=== PATIENT | female | born 1950 | race Caucasian/White ===

== ENCOUNTER 2018-02-06 15:46 | Outpatient (CLI) | payer OTHER, SELFPAY ==
[2018-02-06 16:12] LABS: Abs Immature Grans 0.02 k/cumm (0.0-0.09); Absolute Basophil Count 0.03 k/cumm (0.0-0.2); Absolute Eosinophil Count 0.09 k/cumm (0.0-0.7); Absolute Lymphocyte Count 1.04 k/cumm (1.2-3.4); Absolute Monocyte Count 0.55 k/cumm (0.11-0.7); Absolute Neutrophil Count 7.62 k/cumm (1.2-6.7); Basophils % 0.3; HCT 44.3 % (36.0-46.0); HGB 14.9 g/dL (12.0-15.5); Immature Grans % 0.2; Lymphocytes % 11.1; Mean Corp. HGB Concentration 33.6 g/dL (32.0-36.0); Mean Corpuscular Hemoglobin 32.1 pg (27.0-33.0); Mean Corpuscular Volume 95.5 fL (80-95); Mean Platelet Volume 9.1 fL (8.0-11.0); Monocytes % 5.9; Neutrophils % 81.5; Platelet Count 244 x1000/uL (130-400); RBC 4.64 m/cumm (4.00-5.20); RBC Distribution Width 13.4 % (11.7-14.6); White Blood Cell Count 9.35 k/cumm (4.4-10.8)
[2018-02-06 17:17] LABS: ALT 27 U/L (12-78); AST 21 U/L (15-37); Albumin 3.9 g/dL (3.4-5.0); Alkaline Phosphatase 87 U/L (46-116); Anion Gap 7.5 mmol/L (3-11); BUN 16 mg/dL (7-18); Bilirubin, Total 0.6 mg/dL (0.2-1.0); CO2 30.5 mmol/L (21.0-32.0); CREATININE 0.86 mg/dL (0.55-1.02); Calcium 9.2 mg/dL (8.5-10.1); Chloride 102 mmol/L (98-107); Glucose 100 mg/dL (70-100); Sodium 140 mmol/L (136-145); Total Protein 7.8 g/dL (6.4-8.2)
[2018-02-06 19:31] LABS: ESR 15 MM/HR (0-30)
== END 2018-02-06 16:06 ==
PROVIDERS: PCP Emergency Medicine; Visit Provider Internal Medicine Rheumatology
DX: M35.01 Sjogren syndrome with keratoconjunctivitis (principal); Z79.899 Other long term (current) drug therapy
CPT/HCPCS: 36415; 80053; 85652; 85025; 86140

== ENCOUNTER 2018-08-01 09:40 | Outpatient (CLI) | payer OTHER, SELFPAY ==
[2018-08-01 12:16] LABS: Abs Immature Grans 0.02 k/cumm (0.0-0.09); Absolute Basophil Count 0.03 k/cumm (0.0-0.2); Absolute Lymphocyte Count 1.31 k/cumm (1.2-3.4); Absolute Monocyte Count 0.62 k/cumm (0.11-0.7); Absolute Neutrophil Count 5.48 k/cumm (1.2-6.7); Basophils % 0.4; Eosinophils % 3.9; HCT 41.2 % (36.0-46.0); HGB 13.8 g/dL (12.0-15.5); Immature Grans % 0.3; Lymphocytes % 16.9; Mean Corp. HGB Concentration 33.5 g/dL (32.0-36.0); Mean Corpuscular Hemoglobin 31.9 pg (27.0-33.0); Mean Corpuscular Volume 95.2 fL (80-95); Mean Platelet Volume 9.7 fL (8.0-11.0); Neutrophils % 70.5; Platelet Count 265 x1000/uL (130-400); RBC 4.33 m/cumm (4.00-5.20); RBC Distribution Width 12.6 % (11.7-14.6); White Blood Cell Count 7.76 k/cumm (4.4-10.8)
[2018-08-01 12:54] LABS: ALT 29 U/L (12-78); AST 24 U/L (15-37); Albumin 3.5 g/dL (3.4-5.0); Alkaline Phosphatase 72 U/L (46-116); Anion Gap 8.4 mmol/L (3-11); BUN 17 mg/dL (7-18); Bilirubin, Total 0.5 mg/dL (0.2-1.0); C-Reactive Protein 0.37 mg/dL (0.0-0.3); CO2 30.6 mmol/L (21.0-32.0); CREATININE 0.85 mg/dL (0.55-1.02); Calcium 8.9 mg/dL (8.5-10.1); Chloride 101 mmol/L (98-107); Glucose 83 mg/dL (70-100); Potassium 4.1 mmol/L (3.5-5.1); Sodium 140 mmol/L (136-145); Total Protein 7.2 g/dL (6.4-8.2)
[2018-08-01 13:19] LABS: ESR 16 MM/HR (0-30)
== END 2018-08-01 10:00 ==
PROVIDERS: PCP Family Medicine; Visit Provider Internal Medicine Rheumatology
DX: M35.01 Sjogren syndrome with keratoconjunctivitis (principal); Z79.899 Other long term (current) drug therapy
CPT/HCPCS: 36415; 80053; 85652; 85025; 86140

== ENCOUNTER 2018-09-25 19:20 | Outpatient (CLI) | payer OTHER, SELFPAY ==
--- NOTE | 2018-09-25 12:56 | DI.RAD_ITS ---
SYMPTOMS/DIAGNOSIS: OSTEOPENIA F/U, M85.88 DEXA SCAN: DEXA scan was performed according to the usual protocol. The findings for lumbar spine scanning are a T score of -2.4; previous examination of May 2012 showed a lumbar T score of -2.3. Left hip scanning shows a T score of -1.7 with left femoral neck T score of - 2.2; previous examination of May 2012 showed left hip T score of -1.5. Right forearm scanning shows a T score of -1.6; previous examination of May 2012 showed a forearm T score of -1.3. CONCLUSION: Findings consistent with osteopenia according to the WHO criteria. Please note that the lateral vertebral scanogram shows no evidence of a vertebral compression fracture.
== END 2018-09-25 19:40 ==
PROVIDERS: PCP Family Medicine; Visit Provider Family Medicine
DX: M85.88 Other specified disorders of bone density and structure, other site (principal)
CPT/HCPCS: 77080

== ENCOUNTER 2018-10-13 03:01 | Outpatient (CLI) | payer OTHER, SELFPAY ==
[2018-10-13 12:28] LABS: Cholesterol 230 mg/dL (50-200); HDL Cholesterol 60 mg/dL (40-60); LDL CHOLESTEROL 141 mg/dL (<100); TSH (W/Ref FT4) 0.84 uIU/mL (0.358-3.74); Triglyceride 116 mg/dL (30-150)
== END 2018-10-13 03:21 ==
PROVIDERS: PCP Family Medicine; Visit Provider Family Medicine
DX: E03.9 Hypothyroidism, unspecified (principal)
CPT/HCPCS: 36415; 80061; 83721; 84443

== ENCOUNTER 2019-04-27 08:42 | Outpatient (CLI) | payer OTHER, SELFPAY ==
[2019-04-27 15:57] LABS: Abs Immature Grans 0.02 k/cumm (0.0-0.09); Absolute Basophil Count 0.03 k/cumm (0.0-0.2); Absolute Eosinophil Count 0.09 k/cumm (0.0-0.7); Absolute Lymphocyte Count 1.46 k/cumm (1.2-3.4); Absolute Monocyte Count 0.65 k/cumm (0.11-0.7); Absolute Neutrophil Count 7.17 k/cumm (1.2-6.7); Basophils % 0.3; HCT 43.4 % (36.0-46.0); HGB 14.4 g/dL (12.0-15.5); Immature Grans % 0.2; Lymphocytes % 15.5; Mean Corp. HGB Concentration 33.2 g/dL (32.0-36.0); Mean Corpuscular Hemoglobin 31.3 pg (27.0-33.0); Mean Corpuscular Volume 94.3 fL (80-95); Mean Platelet Volume 8.8 fL (8.0-11.0); Monocytes % 6.9; Neutrophils % 76.1; Platelet Count 282 x1000/uL (130-400); RBC Distribution Width 13.1 % (11.7-14.6); White Blood Cell Count 9.42 k/cumm (4.4-10.8)
[2019-04-27 16:27] LABS: ALT 38 U/L (14-59); AST 27 U/L (15-37); Alkaline Phosphatase 86 U/L (46-116); Bilirubin, Total 0.3 mg/dL (0.2-1.0); Total Protein 7.8 g/dL (6.4-8.2)
== END 2019-04-27 09:02 ==
LOC: LOS 08:46 → LBO 15:17
PROVIDERS: PCP Family Medicine; Visit Provider Internal Medicine
DX: K75.4 Autoimmune hepatitis (principal)
CPT/HCPCS: 36415; 80076; 85025

== ENCOUNTER 2019-06-09 03:04 | Outpatient (CLI) | payer OTHER, SELFPAY ==
[2019-06-09 13:42] LABS: ALT 47 U/L (14-59); AST 25 U/L (15-37); Albumin 3.6 g/dL (3.4-5.0); Alkaline Phosphatase 97 U/L (46-116); Bilirubin, Total 0.6 mg/dL (0.2-1.0); TSH 0.46 uIU/mL (0.36-3.74); Total Protein 7.4 g/dL (6.4-8.2)
[2019-06-09 13:56] LABS: Bilirubin, Direct 0.12 mg/dL (0.00-0.20)
== END 2019-06-09 03:24 ==
PROVIDERS: Internal Medicine; PCP Family Medicine; Visit Provider Internal Medicine Gastroenterology
DX: E03.9 Hypothyroidism, unspecified (principal); K75.4 Autoimmune hepatitis
CPT/HCPCS: 36415; 80076; 84443

== ENCOUNTER 2019-06-15 15:06 | Outpatient (REF) | payer OTHER, SELFPAY ==
--- NOTE | 2019-06-15 14:30 | PAPFT_PTH ---
PATIENT: Clarisse Mendez LOC: [facility] U#:[id number] AGE/SX: 68/F ROOM: RE06/15/[address]: FIDEL Darby : 1950 BED: DIS: 06/15/2019 SPEC #: [id number] RECD: 06/15/19 17:41 STATUS: BRISA REAmy #: [id number] RACHEL: 06/15/19 14:[address]: Scarlett Cage DEPT: [facility] Cytology RECD BY: Keke Randhawa ENTERED: 06/15/19 17:47 SP TYPE: PAPFT OTHR DR: Asif Og MD Tissues: 1 - CX/ENDOCX FOR PAP SMEARS Procedures: PAP THIN PREP/UVM Screening HPV DNA PROBE Comments: [id number]
== END 2019-06-15 15:26 ==
LOC: LBN 15:06
PROVIDERS: PCP Family Medicine; Visit Provider Nurse Practitioner Family
DX: Z12.4 Encounter for screening for malignant neoplasm of cervix (principal)
CPT/HCPCS: 88142; 87624

== ENCOUNTER 2019-07-08 02:31 | Outpatient (CLI) | payer OTHER, SELFPAY ==
[2019-07-08 12:59] LABS: Abs Immature Grans 0.03 k/cumm (0.0-0.09); Absolute Basophil Count 0.02 k/cumm (0.0-0.2); Absolute Eosinophil Count 0.23 k/cumm (0.0-0.7); Absolute Lymphocyte Count 1.27 k/cumm (1.2-3.4); Absolute Monocyte Count 0.77 k/cumm (0.11-0.7); Absolute Neutrophil Count 4.22 k/cumm (1.2-6.7); Basophils % 0.3; Eosinophils % 3.5; HCT 42.2 % (36.0-46.0); HGB 13.7 g/dL (12.0-15.5); Immature Grans % 0.5 %; Lymphocytes % 19.4; Mean Corp. HGB Concentration 32.5 g/dL (32.0-36.0); Mean Corpuscular Hemoglobin 30.7 pg (27.0-33.0); Mean Corpuscular Volume 94.6 fL (80-95); Monocytes % 11.8; Neutrophils % 64.5; Platelet Count 295 x1000/uL (130-400); RBC 4.46 m/cumm (4.00-5.20); RBC Distribution Width 12.9 % (11.7-14.6); White Blood Cell Count 6.54 k/cumm (4.4-10.8)
[2019-07-08 13:06] LABS: BUN 13 mg/dL (7-18); CREATININE 0.84 mg/dL (0.55-1.02); Calcium 8.5 mg/dL (8.5-10.1); Chloride 105 mmol/L (98-107); Glucose 83 mg/dL (74-106); Potassium 4.1 mmol/L (3.5-5.1); Sodium 141 mmol/L (136-145)
[2019-07-08 13:19] LABS: ALT 40 U/L (14-59); AST 27 U/L (15-37); Albumin 3.4 g/dL (3.4-5.0); Alkaline Phosphatase 99 U/L (46-116); Bilirubin, Direct 0.11 mg/dL (0.00-0.20); Bilirubin, Total 0.4 mg/dL (0.2-1.0); Total Protein 6.9 g/dL (6.4-8.2)
[2019-07-09 05:07] LABS: Vitamin D 25 Total 41.3 ng/ml (30-100)
[2019-07-09 11:56] LABS: CA 125 16 U/mL (<30)
== END 2019-07-08 02:51 ==
PROVIDERS: Nurse Practitioner Family; PCP Family Medicine; Referring Provider Internal Medicine Rheumatology; Visit Provider Internal Medicine Gastroenterology
DX: M35.00 Sjogren syndrome, unspecified (principal); M81.0 Age-related osteoporosis without current pathological fracture; Z15.01 Genetic susceptibility to malignant neoplasm of breast; Z15.09 Genetic susceptibility to other malignant neoplasm; K75.4 Autoimmune hepatitis
CPT/HCPCS: 36415; 80048; 80076; 82306; 86304; 85025

== ENCOUNTER 2019-07-16 02:23 | Outpatient (RCR) | payer OTHER, SELFPAY ==
[2019-07-16] MEDS: Normal Saline Flush 10 ML SYR IVP (12:05)
== END 2019-07-25 23:59 | disposition home or self-care (01) ==
LOC: INF 02:23
PROVIDERS: PCP Family Medicine; Visit Provider Family Medicine
DX: M81.0 Age-related osteoporosis without current pathological fracture (principal)
CPT/HCPCS: 96365; J3489

== ENCOUNTER 2020-01-25 02:19 | Outpatient (CLI) | payer OTHER, SELFPAY ==
--- NOTE | 2020-01-25 12:55 | DI.RAD_ITS ---
EXAM: XR ANKLE RT COMPLETE CLINICAL HISTORY: RT ANKLE PAIN, RT ANKLE SPRAIN, S93.401A. TECHNIQUE: 2D digital imaging was performed. COMPARISON: No exams were available for comparison FINDINGS: BONES: There is a nondisplaced transverse fracture through the tip of the lateral malleolus. No bony destructive lesion is seen. JOINTS: The ankle mortise is normally aligned. SOFT TISSUE: Soft tissue swelling about the ankle laterally. IMPRESSION: Nondisplaced transverse fracture through the distal lateral malleolus. DATA REPOSITORY: RADIATION DOSE DELIVERED:
== END 2020-01-25 02:39 ==
PROVIDERS: PCP Family Medicine; Visit Provider Family Medicine
DX: S82.64XA Nondisplaced fracture of lateral malleolus of right fibula, initial encounter for closed fracture (principal)
CPT/HCPCS: 73610

== ENCOUNTER 2020-01-28 10:30 | Outpatient (CLI) | payer OTHER, SELFPAY | END 2020-01-28 10:50 | PROVIDERS: PCP Family Medicine; Visit Provider Physician Assistant Surgical | DX: S82.61XA Displaced fracture of lateral malleolus of right fibula, initial encounter for closed fracture (principal); X58.XXXA Exposure to other specified factors, initial encounter | CPT/HCPCS: 99203 ==

== ENCOUNTER 2020-02-22 03:05 | Outpatient (CLI) | payer OTHER, SELFPAY ==
[2020-02-22 09:37] LABS: ALT 31 U/L (14-59); AST 20 U/L (15-37); Albumin 3.3 g/dL (3.4-5.0); Alkaline Phosphatase 68 U/L (46-116); Bilirubin, Direct 0.11 mg/dL (0.00-0.20); Bilirubin, Total 0.4 mg/dL (0.2-1.0); Total Protein 6.8 g/dL (6.4-8.2)
[2020-02-22 09:44] LABS: ALT 31 U/L (14-59); AST 20 U/L (15-37); Albumin 3.4 g/dL (3.4-5.0); Alkaline Phosphatase 70 U/L (46-116); Anion Gap 6.3 mmol/L (3-11); BUN 12 mg/dL (7-18); Bilirubin, Total 0.5 mg/dL (0.2-1.0); CO2 28.7 mmol/L (21.0-32.0); CREATININE 0.85 mg/dL (0.55-1.02); Calcium 8.5 mg/dL (8.5-10.1); Chloride 104 mmol/L (98-107); HDL Cholesterol 66 mg/dL (40-60); Potassium 3.7 mmol/L (3.5-5.1); Sodium 139 mmol/L (136-145); Triglyceride 174 mg/dL (<150)
[2020-02-22 09:56] LABS: Calculated LDL 118 mg/dL (<100); Cholesterol 218 mg/dL (<200); Glucose 108 mg/dL (74-106)
== END 2020-02-22 03:25 ==
PROVIDERS: Internal Medicine Gastroenterology; PCP Family Medicine
DX: E03.9 Hypothyroidism, unspecified (principal); K75.4 Autoimmune hepatitis
CPT/HCPCS: 36415; 80053; 80061; 80076; 85025

== ENCOUNTER 2020-03-07 01:11 | Outpatient (CLI) | payer OTHER, SELFPAY ==
[2020-03-07 11:54] LABS: Abs Immature Grans 0.04 10^3/uL (0.0-0.06); Absolute Basophil Count 0.05 10^3/uL (0.0-0.2); Absolute Eosinophil Count 0.19 10^3/uL (0.0-0.7); Absolute Lymphocyte Count 0.84 10^3/uL (1.2-3.4); Absolute Neutrophil Count 6.46 10^3/uL (1.2-6.7); Basophils % 0.6; Eosinophils % 2.3; HCT 42.5 % (36.0-46.0); HGB 14.1 g/dL (11.2-15.7); Immature Grans % 0.5; Lymphocytes % 10.3; MCH 30.8 pg (27.0-33.0); MCHC 33.2 % (32.0-36.0); MCV 92.8 fL (80-95); MPV 8.7 fL (8.0-11.0); Monocytes % 7.3; Nucleated RBC 0 %; Platelet Count 238 10^3/uL (130-400); RBC 4.58 10^6/uL (3.93-5.22); RDW 12.9 % (11.7-14.6); WBC 8.18 10^3/uL (4.4-10.8)
[2020-03-07 13:21] LABS: ALT 37 U/L (14-59); AST 24 U/L (15-37); Albumin 3.5 g/dL (3.4-5.0); Alkaline Phosphatase 73 U/L (46-116); Bilirubin, Total 0.4 mg/dL (0.2-1.0); Total Protein 7.4 g/dL (6.4-8.2)
== END 2020-03-07 01:31 ==
PROVIDERS: PCP Family Medicine; Visit Provider Internal Medicine Gastroenterology
DX: K75.4 Autoimmune hepatitis (principal)
CPT/HCPCS: 36415; 80076; 85025

== ENCOUNTER 2020-07-21 02:45 | Outpatient (RCR) | payer OTHER, SELFPAY ==
[2020-07-21] MEDS: Normal Saline Flush 10 ML SYR IVP (12:11)
== END 2020-07-24 23:59 | disposition home or self-care (01) ==
LOC: INF 02:45
PROVIDERS: PCP Family Medicine; Visit Provider Family Medicine
DX: M81.0 Age-related osteoporosis without current pathological fracture (principal)
CPT/HCPCS: 96365; J3489

== ENCOUNTER 2020-08-29 04:20 | Outpatient (CLI) | payer OTHER, SELFPAY ==
[2020-08-29 13:05] LABS: TSH 0.74 uIU/mL (0.36-3.74)
== END 2020-08-29 04:21 | disposition home or self-care (01) ==
LOC: LOS 04:20
PROVIDERS: PCP Family Medicine; Visit Provider Family Medicine
DX: R53.83 Other fatigue (principal)
CPT/HCPCS: 36415; 84443

== ENCOUNTER 2020-09-21 03:31 | Outpatient (CLI) | payer OTHER, SELFPAY ==
[2020-09-21 12:26] LABS: Abs Immature Grans 0.02 10^3/uL (0.0-0.06); Absolute Basophil Count 0.05 10^3/uL (0.0-0.2); Absolute Eosinophil Count 0.21 10^3/uL (0.0-0.7); Absolute Lymphocyte Count 1.42 10^3/uL (1.2-3.4); Absolute Monocyte Count 0.71 10^3/uL (0.1-0.8); Absolute Neutrophil Count 5.53 10^3/uL (1.2-6.7); Basophils % 0.6; Eosinophils % 2.6; HCT 43.3 % (36.0-46.0); Immature Grans % 0.3; Lymphocytes % 17.9; MCH 31.3 pg (27.0-33.0); MCHC 32.3 % (32.0-36.0); MCV 96.9 fL (80-95); MPV 9.1 fL (8.0-11.0); Monocytes % 8.9; Neutrophils % 69.7; Nucleated RBC 0 %; Platelet Count 252 10^3/uL (130-400); RBC 4.47 10^6/uL (3.93-5.22); RDW 12.8 % (11.7-14.6); RDW-SD 45.2 fL; WBC 7.94 10^3/uL (4.4-10.8)
[2020-09-21 12:56] LABS: ALT 40 U/L (14-59); AST 26 U/L (15-37); Albumin 3.8 g/dL (3.4-5.0); Alkaline Phosphatase 62 U/L (46-116); Bilirubin, Direct 0.2 mg/dL (0.0-0.2); Bilirubin, Total 0.7 mg/dL (0.2-1.0); Total Protein 7.4 g/dL (6.4-8.2)
== END 2020-09-21 03:32 | disposition home or self-care (01) ==
PROVIDERS: PCP Family Medicine; Visit Provider Internal Medicine Gastroenterology
DX: K75.4 Autoimmune hepatitis (principal)
CPT/HCPCS: 36415; 80076; 85025

== ENCOUNTER 2021-04-10 03:17 | Outpatient (CLI) | payer MEDICARE, SELFPAY ==
[2021-04-10 12:27] LABS: Abs Immature Grans 0.02 10^3/uL (0.0-0.06); Absolute Basophil Count 0.04 10^3/uL (0.0-0.2); Absolute Eosinophil Count 0.16 10^3/uL (0.0-0.7); Absolute Lymphocyte Count 1.17 10^3/uL (1.2-3.4); Absolute Monocyte Count 0.57 10^3/uL (0.1-0.8); Absolute Neutrophil Count 5.25 10^3/uL (1.2-6.7); Basophils % 0.6; Eosinophils % 2.2; HCT 43.1 % (36.0-46.0); Immature Grans % 0.3; Lymphocytes % 16.2; MCH 31.7 pg (27.0-33.0); MCHC 32.5 % (32.0-36.0); MCV 97.7 fL (80-95); MPV 9.1 fL (8.0-11.0); Monocytes % 7.9; Neutrophils % 72.8; Nucleated RBC 0 %; Platelet Count 238 10^3/uL (130-400); RBC 4.41 10^6/uL (3.93-5.22); RDW 12.6 % (11.7-14.6); RDW-SD 45.4 fL; WBC 7.21 10^3/uL (4.4-10.8)
[2021-04-10 14:01] LABS: ALT 30 U/L (14-59); AST 19 U/L (15-37); Albumin 3.6 g/dL (3.4-5.0); Alkaline Phosphatase 50 U/L (46-116); Bilirubin, Direct 0.1 mg/dL (0.0-0.2); Bilirubin, Total 0.6 mg/dL (0.2-1.0); Total Protein 7.2 g/dL (6.4-8.2)
[2021-04-10 14:11] LABS: TSH (W/Ref FT4) 0.08 uIU/mL (0.36-3.74)
[2021-04-10 14:32] LABS: FREE T4 1.46 ng/dL (0.76-1.46)
== END 2021-04-10 03:18 | disposition home or self-care (01) ==
LOC: LOS 03:17
PROVIDERS: Internal Medicine Gastroenterology; PCP Family Medicine; Visit Provider Family Medicine
DX: E03.9 Hypothyroidism, unspecified (principal); K75.4 Autoimmune hepatitis
CPT/HCPCS: 36415; 80076; 84439; 84443; 85025

== ENCOUNTER 2021-05-18 11:20 | Outpatient (CLI) | payer MEDICARE, SELFPAY ==
--- NOTE | 2021-05-18 11:15 | RT.EKG_ITS ---
APPROVED REPORT Exam: Resting ECG Reason for Exam: chest pressure Patient Location: O HR:95 bpm ECG Measurements Heart Rate 95 AXIS NH 134 P 55 QRSd 94 QRS 18 QT 357 T 53 QTc 449 Conclusion Sinus rhythm...normal P axis, V-rate 60- 99 Probable left atrial enlargement...P >50mS, <-0.10mV V1
== END 2021-05-18 11:21 | disposition home or self-care (01) ==
LOC: DI.CM 11:21
PROVIDERS: PCP Family Medicine; Visit Provider Nurse Practitioner Family
DX: R07.89 Other chest pain (principal)
CPT/HCPCS: 93010

== ENCOUNTER 2021-05-25 01:13 | Outpatient (CLI) | payer MEDICARE, SELFPAY ==
--- NOTE | 2021-05-25 15:00 | ETT_ITS ---
APPROVED REPORT Exam: Exercise Treadmill Patient Location: Out-Patient Room/Bed: Stress Nurse: Samantha Cablalero RN Ordering Provider:JAMES NAM, Contact Number: [phone] BMI: 28.79 Baseline Rhythm: Sinus Rhythm Indications: CHEST PAIN Medical History Medical History: HTN, GERD, Hypothyroidism, Osteopenia Cardiac Medications: Losartan, Nexium Allergies: Penicillins, Vancomycin, Gluten Cardiac Risk Factors: FHX of CAD, HTN Previous Cardiac Procedures: None Pretest Chest Pain Characteristics: Intermittent sternal chest pressure radiating to back and shoulde rs (07/06) Exercise History: Physically active Physical Disabilities: None Lung Sounds: Clear to auscultation Heart Sounds: Regular Stress Test Details Test: Exercise stress testing was performed using a Zafar protocol. Rest Stress HR Resting HR Supine: 83 bpm Max Heart Rate (APMHR): 152 bpm Resting HR Standin bpm Target HR (85% APMHR): 129 bpm Max HR Achieved: 167 bpm % of APMHR: 109 Recovery HR: 97 bpm HR response to stress: Normal HR response to stress BP Resting BP Supine: 132/80 mmHg Resting BP Standin/80 mmHg Max BP: 174/94 mmHg Recovery BP: 138/76 mmHg BP response to stress: Normal blood pressure response to stress. ECG Resting ECG: Sinus Rhythm Ectopy: PVCs/PACs Stress ECG: Sinus Tachycardia ST Change: No significant ST segment changes noted Arrhythmia: occasional PACs, frequent Multifocal PVCS, couplet Recovery ECG: Sinus Rhythm Recovery ST Change: occasional PACs, frequent PVCs Clinical Reason for Termination: Fatigue Stress Symptoms: General Fatigue Exercise duration: 09 min41 sec Highest Stage Reached: Stage 4: 4.2 mph at 16% grade. Exercise capacity: 11.29 METs Olsen Treadmill Score: 9 Rate Pressure Product: [id number] Stress ECG Conclusion 1. Resting electrocardiogram was within normal limits 2. Patient exercised on Zafar protocol and completed a workload of 11.29 METS, stopping due to fatigu e 3. Normal heart rate and blood pressure response to exercise. Patient achieved greater than 100% of predicted heart rate for age 4. Electrocardiographically there was no evidence of myocardial ischemia 5. Ventricular ectopic beats were noted Olsen Treadmill Score is 9 which is Low risk. Stress Test Summary STAGE Time (mins) Speed (mph) Grade (%) HR BP SYMPTOMS METS Supine 83 132/80 Standing 98 132/80 1 3 1.7 10 109 134/82 4.6 2 6 2.5 12 124 138/84 7 3 9 3.4 14 150 146/86 10.2 1 min recovery 136 174/94 3 min recovery 108 160/80 6 min recovery 97 138/76 Intermittent chest pressure reported prior to exercise, but not present during exercise test or durin g recovery period.
== END 2021-05-25 01:33 ==
PROVIDERS: PCP Family Medicine; Visit Provider Nurse Practitioner Family
DX: R07.9 Chest pain, unspecified (principal); Z82.49 Family history of ischemic heart disease and other diseases of the circulatory system; I10 Essential (primary) hypertension; I49.3 Ventricular premature depolarization; I49.1 Atrial premature depolarization
CPT/HCPCS: 93016; 93018; 93017

== ENCOUNTER 2021-07-03 04:05 | Outpatient (CLI) | payer MEDICARE, SELFPAY ==
[2021-07-03 14:58] LABS: Anion Gap 9.8 mmol/L (3-11); BUN 16 mg/dL (7-18); CO2 27.2 mmol/L (21.0-32.0); CREATININE 0.7 mg/dL (0.55-1.02); Chloride 104 mmol/L (98-107); Glucose 114 mg/dL (74-106); Potassium 4.2 mmol/L (3.5-5.1); Sodium 141 mmol/L (136-145); Vitamin B12 488 pg/mL (193-986)
[2021-07-03 15:18] LABS: FREE T4 1.33 ng/dL (0.76-1.46)
[2021-07-04 09:35] LABS: CA 125 18 U/mL (<30)
== END 2021-07-03 04:06 | disposition home or self-care (01) ==
LOC: LBO 04:05
PROVIDERS: Nurse Practitioner Family; PCP Family Medicine; Visit Provider Family Medicine
DX: E03.9 Hypothyroidism, unspecified (principal); I10 Essential (primary) hypertension; R03.0 Elevated blood-pressure reading, without diagnosis of hypertension; G62.9 Polyneuropathy, unspecified; N83.209 Unspecified ovarian cyst, unspecified side; Z15.09 Genetic susceptibility to other malignant neoplasm
CPT/HCPCS: 36415; 80048; 86304; 82607; 84439; 84443

== ENCOUNTER 2021-07-27 10:39 | Outpatient (RCR) | payer MEDICARE, SELFPAY ==
[2021-07-27] MEDS: Normal Saline Flush 10 ML SYR IVP (12:09)
[2021-07-27] MEDS: ZOLEDRONIC ACID/MANNITOL/WATER 5 MG/100 ML BTL 300 MG IVPB (12:09)
== END 2021-08-24 23:59 | disposition home or self-care (01) ==
LOC: INF 10:39
PROVIDERS: PCP Family Medicine; Visit Provider Family Medicine
DX: M81.0 Age-related osteoporosis without current pathological fracture (principal)
CPT/HCPCS: 96365; J3489

== ENCOUNTER 2021-09-08 02:33 | Outpatient (CLI) | payer MEDICARE, SELFPAY ==
[2021-09-08 13:22] LABS: Abs Immature Grans 0.07 10^3/uL (0.0-0.06); Absolute Basophil Count 0.03 10^3/uL (0.0-0.2); Absolute Eosinophil Count 0.05 10^3/uL (0.0-0.7); Absolute Monocyte Count 0.32 10^3/uL (0.1-0.8); Basophils % 0.3; Eosinophils % 0.5; HGB 14.8 g/dL (11.2-15.7); Immature Grans % 0.6; Lymphocytes % 7.3; MCH 32.5 pg (27.0-33.0); MCHC 32.9 % (32.0-36.0); MCV 98.9 fL (80-95); MPV 8.8 fL (8.0-11.0); Monocytes % 2.9; Neutrophils % 88.4; Platelet Count 245 10^3/uL (130-400); RBC 4.55 10^6/uL (3.93-5.22); RDW 12.4 % (11.7-14.6); WBC 10.97 10^3/uL (4.4-10.8)
[2021-09-08 14:10] LABS: ALT 32 U/L (14-59); AST 19 U/L (15-37); Albumin 3.9 g/dL (3.4-5.0); Alkaline Phosphatase 52 U/L (46-116); Anion Gap 12.1 mmol/L (3-11); BUN 16 mg/dL (7-18); Bilirubin, Total 0.4 mg/dL (0.2-1.0); CO2 24.9 mmol/L (21.0-32.0); CREATININE 0.9 mg/dL (0.55-1.02); Calcium 9.3 mg/dL (8.5-10.1); Chloride 103 mmol/L (98-107); Glucose 129 mg/dL (74-106); Potassium 4.2 mmol/L (3.5-5.1); Sodium 140 mmol/L (136-145); Total Protein 7.5 g/dL (6.4-8.2)
[2021-09-08 14:17] LABS: TSH (W/Ref FT4) 0.17 uIU/mL (0.36-3.74)
[2021-09-08 14:42] LABS: FREE T4 1.28 ng/dL (0.76-1.46)
== END 2021-09-08 02:34 | disposition home or self-care (01) ==
LOC: LBO 02:33
PROVIDERS: PCP Family Medicine; Visit Provider Internal Medicine Gastroenterology
DX: K75.4 Autoimmune hepatitis (principal); Z79.899 Other long term (current) drug therapy
CPT/HCPCS: 36415; 80053; 84439; 84443; 85025

== ENCOUNTER 2021-12-11 01:31 | Outpatient (CLI) | payer MEDICARE, SELFPAY ==
[2021-12-11 12:44] LABS: Abs Immature Grans 0.03 10^3/uL (0.0-0.06); Absolute Basophil Count 0.04 10^3/uL (0.0-0.2); Absolute Eosinophil Count 0.13 10^3/uL (0.0-0.7); Absolute Lymphocyte Count 0.93 10^3/uL (1.2-3.4); Absolute Monocyte Count 0.67 10^3/uL (0.1-0.8); Absolute Neutrophil Count 6.63 10^3/uL (1.2-6.7); Basophils % 0.5; Eosinophils % 1.5; HCT 41.6 % (36.0-46.0); HGB 14.5 g/dL (11.2-15.7); Immature Grans % 0.4; MCH 33.8 pg (27.0-33.0); MCHC 34.9 % (32.0-36.0); MCV 97 fL (80-95); MPV 9.5 fL (8.0-11.0); Monocytes % 7.9; Neutrophils % 78.7; Platelet Count 254 10^3/uL (130-400); RBC 4.29 10^6/uL (3.93-5.22); RDW 12.3 % (11.7-14.6); WBC 8.43 10^3/uL (4.4-10.8)
[2021-12-11 13:14] LABS: ALT 35 U/L (14-59); AST 33 U/L (15-37); Albumin 3.9 g/dL (3.4-5.0); Alkaline Phosphatase 42 U/L (46-116); BUN 18 mg/dL (7-18); Bilirubin, Total 0.6 mg/dL (0.2-1.0); Calcium 9.2 mg/dL (8.5-10.1); Chloride 103 mmol/L (98-107); Estimated GFR 54.97 (mL/min/1.73m2); Glucose 102 mg/dL (74-106); Potassium 3.9 mmol/L (3.5-5.1); Sodium 139 mmol/L (136-145); TSH (W/Ref FT4) 5.26 uIU/mL (0.36-3.74); Total Protein 7.6 g/dL (6.4-8.2)
[2021-12-11 13:49] LABS: FREE T4 1.11 ng/dL (0.76-1.46)
== END 2021-12-11 01:32 | disposition home or self-care (01) ==
LOC: LOS 01:31
PROVIDERS: PCP Family Medicine; Visit Provider Family Medicine
DX: E03.9 Hypothyroidism, unspecified (principal); K75.4 Autoimmune hepatitis
CPT/HCPCS: 36415; 80053; 84439; 84443; 85025

== ENCOUNTER → 2022-02-01 02:06 | Outpatient (CLI) | payer MEDICARE, SELFPAY ==
--- NOTE | 2022-02-01 13:25 | DI.DEXA_ITS ---
Exam(s) XR DEXA BONE DENSITY W/WO KANDACE EXAM: XR DEXA BONE DENSITY W/WO KANDACE CLINICAL HISTORY: OSTEOPENIA AFTER MENOPAUSE,M85.88,SCREENING FOR OSTEOPOROSIS IN POSTMENOPAU TECHNIQUE: COMPARISON: DX XR DEXA BONE DENSITY W/WO KANDACE from 09/25/2018 FINDINGS: Lateral Spine Image: Unremarkable. No compression deformities identified. Left hip: Total T-Score: -1.3. This compares to -1.7 on the prior examination. Total Z-Score: 0.2 T- and Z-scores: Findings are consistent with osteopenia. Lumbar Spine: Total T-Score: -2.0. This compares to minus 2.4 on the prior examination. Total Z-Score: -0.1 T- and Z-scores: Findings are consistent with osteopenia. IMPRESSION: Osteopenia in the lumbar spine and left hip.
== END ==
PROVIDERS: PCP Family Medicine; Visit Provider Internal Medicine Rheumatology
DX: Z78.0 Asymptomatic menopausal state (principal); Z13.820 Encounter for screening for osteoporosis; M85.89 Other specified disorders of bone density and structure, multiple sites
CPT/HCPCS: 77080

== ENCOUNTER 2022-06-21 02:36 | Outpatient (CLI) | payer MEDICARE, SELFPAY ==
[2022-06-21 12:21] LABS: Abs Immature Grans 0.08 10^3/uL (0.0-0.06); Absolute Basophil Count 0.06 10^3/uL (0.0-0.2); Absolute Eosinophil Count 0.29 10^3/uL (0.0-0.7); Absolute Lymphocyte Count 1.83 10^3/uL (1.2-3.4); Absolute Monocyte Count 0.78 10^3/uL (0.1-0.8); Absolute Neutrophil Count 6.81 10^3/uL (1.2-6.7); Basophils % 0.6; Eosinophils % 2.9; HCT 44.4 % (36.0-46.0); HGB 15.3 g/dL (11.2-15.7); Immature Grans % 0.8; Lymphocytes % 18.6; MCH 33.9 pg (27.0-33.0); MCHC 34.5 % (32.0-36.0); MCV 98 fL (80-95); MPV 8.6 fL (8.0-11.0); Monocytes % 7.9; Neutrophils % 69.2; Platelet Count 254 10^3/uL (130-400); RBC 4.51 10^6/uL (3.93-5.22); RDW 12.6 % (11.7-14.6); RDW-SD 45.3 fL; WBC 9.85 10^3/uL (4.4-10.8)
[2022-06-21 12:42] LABS: ALT 26 U/L (14-59); AST 28 U/L (15-37); Albumin 3.9 g/dL (3.4-5.0); Alkaline Phosphatase 40 U/L (46-116); Anion Gap 7.3 mmol/L (3-11); BUN 13 mg/dL (7-18); Bilirubin, Total 0.5 mg/dL (0.2-1.0); CO2 28.7 mmol/L (21.0-32.0); CREATININE 0.9 mg/dL (0.55-1.02); Calcium 9.3 mg/dL (8.5-10.1); Chloride 104 mmol/L (98-107); Glucose 93 mg/dL (74-106); Potassium 3.8 mmol/L (3.5-5.1); Sodium 140 mmol/L (136-145); Total Protein 7.9 g/dL (6.4-8.2)
[2022-06-21 13:14] LABS: TSH (W/Ref FT4) 16.01 uIU/mL (0.36-3.74)
[2022-06-21 13:32] LABS: FREE T4 0.76 ng/dL (0.76-1.46)
== END 2022-06-21 02:37 | disposition home or self-care (01) ==
LOC: LBO 02:36
PROVIDERS: Internal Medicine Gastroenterology; PCP Family Medicine; Visit Provider Family Medicine
DX: R53.83 Other fatigue (principal); K75.4 Autoimmune hepatitis
CPT/HCPCS: 36415; 80053; 84439; 84443; 85025

== ENCOUNTER 2022-07-17 02:11 | Outpatient (CLI) | payer MEDICARE, SELFPAY ==
[2022-07-17 12:41] LABS: TSH (W/Ref FT4) 0.51 uIU/mL (0.36-3.74)
== END 2022-07-17 02:12 | disposition home or self-care (01) ==
LOC: LOS 02:11
PROVIDERS: PCP Family Medicine; Visit Provider Family Medicine
DX: E03.9 Hypothyroidism, unspecified (principal)
CPT/HCPCS: 36415; 84443

== ENCOUNTER 2022-07-19 11:14 | Outpatient (CLI) | payer MEDICARE, SELFPAY ==
--- NOTE | 2022-07-19 09:45 | DI.RAD_ITS ---
Exam(s) XR CHEST 2V PA LATERAL EXAM: XR CHEST 2V PA LATERAL CLINICAL HISTORY: chest pressure R53.83 FATIGUE R07.89 CHEST PAIN M35.00 SJOGREN SYNDROME TECHNIQUE: 2D digital imaging was performed of the chest. Two images were obtained. PA and lateral views were obtained. COMPARISON: CR CHEST 2 VIEWS PA,LAT from 02/19/2017 FINDINGS: MEDIASTINUM: Normal. HEART: Normal. PULMONARY VASCULATURE: Normal. LUNGS: Clear. PLEURAL SPACE: No pleural effusion or pneumothorax. BONE:Within normal limits for the patient's age. OTHER FINDINGS:Normal. IMPRESSION: No acute pulmonary findings. DATA REPOSITORY: RADIATION DOSE DELIVERED:
== END 2022-07-19 11:34 ==
LOC: DI 11:16
PROVIDERS: PCP Family Medicine; Visit Provider Family Medicine
DX: R07.89 Other chest pain (principal); R53.83 Other fatigue; M35.00 Sjogren syndrome, unspecified
CPT/HCPCS: 71046

== ENCOUNTER 2022-07-24 02:34 | Outpatient (CLI) | payer MEDICARE, SELFPAY ==
[2022-07-24 12:24] LABS: ESR 7 mm/hr (0-30)
[2022-07-24 12:35] LABS: C-Reactive Protein 0.28 mg/dL (0.0-0.3)
[2022-07-25 10:11] LABS: Lyme Ab w Rflx to Lyme Confirm Negative (Negative)
== END 2022-07-24 02:35 | disposition home or self-care (01) ==
LOC: LOS 02:34
PROVIDERS: PCP Family Medicine; Visit Provider Family Medicine
DX: G62.9 Polyneuropathy, unspecified (principal); M35.00 Sjogren syndrome, unspecified; R07.89 Other chest pain; R53.83 Other fatigue
CPT/HCPCS: 36415; 85652; 86140; 86618

== ENCOUNTER 2022-07-27 00:31 | Outpatient (CLI) | payer MEDICARE, SELFPAY ==
--- NOTE | 2022-07-27 06:45 | DI.US_ITS ---
APPROVED REPORT EXAM: Comprehensive 2D, Doppler, and color-flow Echocardiogram Patient Location: Out-Patient Offset Duplicating Machine Operator: Natalia Hernández RDCS (AE) Indications: Chest pressure, Arrhythmia, sjogrens syndrome, fatigue Other Information Study Quality: Adequate Conclusion Normal left ventricular wall thickness and chamber size. Estimated ejection fraction is 55 to 60%. Wall motion is normal Normal right ventricular size and systolic function Both atria are normal in size There is no structural or hemodynamically significant valvular disease Mildly dilated ascending aorta measuring 3.58 cm Estimated right ventricular systolic pressure is 24 mmHg Wall motion Left Ventricle The left ventricle is normal size. The left ventricular systolic function is normal. The left ventric ular ejection fraction is within the normal range. There is normal left ventricular wall thickness. T here is normal LV segmental wall motion. There is no ventricular septal defect visualized. LVEF is 58 %. Right Ventricle The right ventricle is normal size. The right ventricular systolic function is normal. The RVSP is 23 .9 mmHg. Atria The left atrium size is normal. The right atrium size is normal. The interatrial septum is intact wit h no evidence for an atrial septal defect. Aortic Valve The aortic valve is normal in structure. There is no aortic valvular stenosis. Trace aortic regurgita tion. Mitral Valve The mitral valve is normal in structure. No evidence of mitral valve stenosis. Trace to mild mitral r egurgitation. Tricuspid Valve The tricuspid valve is normal in structure. There is no tricuspid valve stenosis. Trace tricuspid reg urgitation. Pulmonic Valve Pulmonic valve is not well visualized. There is no pulmonic valvular stenosis. There is no pulmonic v alvular regurgitation. Great Vessels The aortic root is normal in size. The ascending aorta is mildly dilated. Aortic arch is normal in ca liber. IVC is normal in size and collapses >50% with inspiration. Pericardium There is no pericardial effusion. 2D Dimensions IVSD d PLAX 0.72 cm F: 0.6-1.0 LV Vol A2C d MOD 110.0 mL LVPW d PLAX 0.76 cm F: 0.6 - 1.0 LV Vol A4C d MOD 97.5 mL LVID d PLAX 4.00 cm F: 3.8 - 5.2 LA vol/ BSA A2C s A-L 21.5 mL/m2 LVDs 2.75 cm F: 2.2 - 3.5 LA vol/ BSA A4C s A-L 18.1 mL/m2 Ao Root d 2.57 cm F: 2.7 - 3.3 LA Vol/ BSA Biplane s A-L 20.2 mL/m2 RA Area A4C 13.53 cm2 LA Area A4C s MOD 14.49 cm2 RA Vol/ BSA A4C s A-L 15.9 mL/m2 LA Area A2C s MOD 16.20 cm2 Ao Asc Diam d 3.58 cm F: 2.3 - 3.1 LV EF A4C MOD 58.0 % LV EF Teichholz 58.4 % LV EF A2C MOD 60.1 % LVEF (Toro's) 58.37 % F: 54 - 74 LV EF Biplane MOD 58.4 % LV Volume 76.36 mL F: 46 - 106 SV 60.06 mL LV Volume Index 36.88 mL/m2 F: 29 - 61 SV Index 29.08 mL/m2 LV Vol Biplane MOD 102.9 mL FS 30.40 % M-Mode TAPSE 2.17 cm (M/F) >1.7 LV Diastology MV E' medial 0.114 (>0.07 m/s) E/A Ratio 1.0 LV E/e MED 6.70 (<14) MV E Vmax 0.77 (0.4-1.3 m/s) MV E' lateral 0.124 (>0.1 m/s) MV A Vmax 0.75 (0.4-1.3 m/s) LV E/e LAT 6.15 (<14) MV E/A Ratio 0.98 MV E/E' medial 6.71 MV E/E' lateral 6.18 Aortic Valve LVOT Area 2.88 cm2 AoV Area Vmax 2.63 cm2 LVOT Vmax 1.21 m/s AoV Area/ BSA (Vmax) 1.27 cm2/m2 LVOT Mean Anmol. 0.78 m/s CASIMIRO Mean Anmol. 2.38 cm2 LVOT Peak Grad 5.8 mmHg CASIMIRO Mean Anmol. Index 1.15 cm2/m2 LVOT Mean Grad 2.9 mmHg LVOT VTI 0.249 m LVOT Diam s 1.90 cm AoV Vmax 1.32 m/s Velocity Ratio 0.92 AoV Mean Anmol. 0.94 m/s AoV Peak Grad 7.0 mmHg LVOT SV 71.69 mL AoV Mean Grad 3.9 mmHg AoV VTI 0.304 m AoV Area VTI 2.36 cm2 AoV Area/ BSA (VTI) 1.14 cm/m2 Mitral Valve MV DT 239 (160-240 msec) MV PHT 69 msec MV Area PHT 3.17 cm2 Pulmonary Valve PV Vmax 0.97 (0.5-1.5 m/s) RVOT Peak Gr. 1.99 mmHg PV Peak Grad 3.8 mmHg RVOT Mean Gr. 1.10 mmHg PV Mean Grad 2.2 mmHg RVOT VTI 0.154 m PV VTI 0.201 m RVOT Vmax 0.71 m/s Tricuspid Valve TR Peak Grad 20.8 mmHg TR Vmax 2.29 m/s RA Pressure 3.00 mmHg RVSP (TR) 23.9 mmHg
== END 2022-07-27 00:51 ==
LOC: DI 00:31
PROVIDERS: PCP Family Medicine; Visit Provider Family Medicine
DX: G62.9 Polyneuropathy, unspecified (principal); I49.9 Cardiac arrhythmia, unspecified; M35.00 Sjogren syndrome, unspecified; R07.89 Other chest pain; R53.83 Other fatigue
CPT/HCPCS: 93306

== ENCOUNTER 2022-08-09 10:25 | Outpatient (RCR) | payer MEDICARE, SELFPAY ==
--- NOTE | 2022-08-09 10:30 | HOLTER_ITS ---
APPROVED REPORT Conclusion This is a 48-hour Holter monitor ordered for palpitations Rhythm throughout is sinus with an average heart rate of 71. Minimum was 55, maximum 128 There were rare atrial premature beats. There was 1 self-limited atrial run, 10 beats in duration There were moderately frequent ventricular ectopic beats, rare couplets, no ventricular tachycardia. Periods of bigeminy were noted There was no atrial fibrillation, no high-grade AV block, no pauses greater than 3 seconds
== END 2022-08-24 23:59 | disposition home or self-care (01) ==
LOC: CARDOPNVT 10:25
PROVIDERS: PCP Family Medicine; Visit Provider Family Medicine
DX: R00.2 Palpitations (principal); I49.3 Ventricular premature depolarization; I49.8 Other specified cardiac arrhythmias
CPT/HCPCS: 93227; 93225; 93226

== ENCOUNTER 2022-08-27 03:38 | Outpatient (CLI) | payer MEDICARE, SELFPAY ==
[2022-08-27 12:41] LABS: TSH (W/Ref FT4) 1.57 uIU/mL (0.36-3.74)
== END 2022-08-27 03:39 | disposition home or self-care (01) ==
LOC: LOS 03:38
PROVIDERS: PCP Family Medicine; Visit Provider Family Medicine
DX: R07.89 Other chest pain; E03.9 Hypothyroidism, unspecified; I49.9 Cardiac arrhythmia, unspecified
CPT/HCPCS: 36415; 82533; 99203; 84443

== ENCOUNTER 2022-08-27 08:26 | Outpatient (CLI) | payer MEDICARE, SELFPAY ==
--- NOTE | 2022-08-27 08:15 | RT.EKG_ITS ---
APPROVED REPORT Exam: Resting ECG Reason for Exam: arrythmia Patient Location: O HR:106 bpm ECG Measurements Heart Rate 106 AXIS RI 139 P 48 QRSd 90 QRS 3 QT 333 T 41 QTc 443 Conclusion Sinus tachycardia...rate> 99 Ventricular trigeminy...trigeminy string>6 w/ V complexes Probable left atrial enlargement...P >50mS, <-0.10mV V1 Baseline wander in lead(s) V4
== END 2022-08-27 08:27 | disposition home or self-care (01) ==
LOC: DI.CARD 08:27
PROVIDERS: PCP Family Medicine; Visit Provider Internal Medicine Cardiovascular Disease
DX: R00.0 Tachycardia, unspecified; I49.8 Other specified cardiac arrhythmias
CPT/HCPCS: 93010

== ENCOUNTER 2022-09-05 03:15 | Outpatient (CLI) | payer MEDICARE, SELFPAY ==
[2022-09-05 16:01] LABS: Creatine Kinase 98 U/L (26-192)
== END 2022-09-05 03:16 | disposition home or self-care (01) ==
LOC: LBO 03:15
PROVIDERS: PCP Family Medicine; Visit Provider Family Medicine
DX: M79.18 Myalgia, other site (principal)
CPT/HCPCS: 36415; 82550

== ENCOUNTER 2022-10-24 04:32 | Outpatient (CLI) | payer MEDICARE, SELFPAY ==
[2022-10-24 12:32] LABS: ESR 6 mm/hr (0-30)
[2022-10-24 12:38] LABS: C-Reactive Protein 0.51 mg/dL (0.0-0.3); Creatine Kinase 109 U/L (26-192); TSH (W/Ref FT4) 2.75 uIU/mL (0.36-3.74)
== END 2022-10-24 04:33 | disposition home or self-care (01) ==
LOC: LOS 04:32
PROVIDERS: PCP Family Medicine; Visit Provider Family Medicine
DX: E03.9 Hypothyroidism, unspecified (principal); M35.00 Sjogren syndrome, unspecified; G62.9 Polyneuropathy, unspecified; R53.83 Other fatigue; R79.82 Elevated C-reactive protein (CRP)
CPT/HCPCS: 36415; 82550; 85652; 84443; 86140

== ENCOUNTER 2022-11-02 01:05 | Outpatient (CLI) | payer MEDICARE, SELFPAY ==
[2022-11-02 12:45] LABS: Abs Immature Grans 0.04 10^3/uL (0.0-0.06); Absolute Basophil Count 0.06 10^3/uL (0.0-0.2); Absolute Eosinophil Count 0.29 10^3/uL (0.0-0.7); Absolute Lymphocyte Count 1.46 10^3/uL (1.2-3.4); Absolute Monocyte Count 0.66 10^3/uL (0.1-0.8); Absolute Neutrophil Count 4.78 10^3/uL (1.2-6.7); Basophils % 0.8; HCT 43.1 % (36.0-46.0); HGB 14.2 g/dL (11.2-15.7); Immature Grans % 0.5; MCH 32.5 pg (27.0-33.0); MCHC 32.9 % (32.0-36.0); MCV 99 fL (80-95); Monocytes % 9.1; Neutrophils % 65.6; Platelet Count 252 10^3/uL (130-400); RBC 4.37 10^6/uL (3.93-5.22); RDW 12.4 % (11.7-14.6); WBC 7.29 10^3/uL (4.4-10.8)
[2022-11-02 13:22] LABS: ALT 37 U/L (14-59); AST 28 U/L (15-37); Albumin 3.5 g/dL (3.4-5.0); Alkaline Phosphatase 56 U/L (46-116); BUN 17 mg/dL (7-18); Bilirubin, Total 0.4 mg/dL (0.2-1.0); CREATININE 0.8 mg/dL (0.55-1.02); Calcium 8.9 mg/dL (8.5-10.1); Chloride 104 mmol/L (98-107); Estimated GFR 79.22 (mL/min/1.73m2); Glucose 97 mg/dL (74-106); Sodium 139 mmol/L (136-145); Total Protein 7.5 g/dL (6.4-8.2)
== END 2022-11-02 01:06 | disposition home or self-care (01) ==
LOC: LOS 01:05
PROVIDERS: PCP Family Medicine; Visit Provider Internal Medicine Gastroenterology
DX: K75.4 Autoimmune hepatitis (principal)
CPT/HCPCS: 36415; 80053; 85025

== ENCOUNTER 2023-03-07 11:25 | Outpatient (REF) | payer MEDICARE, SELFPAY ==
[2023-03-07 21:19] LABS: ALT 29 U/L (14-59); AST 20 U/L (15-37); Albumin 3.7 g/dL (3.4-5.0); Alkaline Phosphatase 56 U/L (46-116); Anion Gap 8.5 mmol/L (3-11); BUN 10 mg/dL (7-18); Bilirubin, Total 0.6 mg/dL (0.2-1.0); CO2 26.5 mmol/L (21.0-32.0); CREATININE 0.7 mg/dL (0.55-1.02); Chloride 101 mmol/L (98-107); Estimated GFR 92.98 (mL/min/1.73m2); Glucose 95 mg/dL (74-106); Sodium 136 mmol/L (136-145); Total Protein 7.4 g/dL (6.4-8.2)
[2023-03-07 22:38] LABS: Abs Immature Grans 0.06 10^3/uL (0.0-0.06); Absolute Basophil Count 0.07 10^3/uL (0.0-0.2); Absolute Eosinophil Count 0.17 10^3/uL (0.0-0.7); Absolute Lymphocyte Count 1.06 10^3/uL (1.2-3.4); Absolute Monocyte Count 1.01 10^3/uL (0.1-0.8); Basophils % 0.6; Eosinophils % 1.4; HGB 14.5 g/dL (11.2-15.7); Immature Grans % 0.5; Lymphocytes % 8.9; MCH 32.6 pg (27.0-33.0); MCHC 33.7 % (32.0-36.0); MCV 97 fL (80-95); MPV 9.7 fL (8.0-11.0); Monocytes % 8.5; Neutrophils % 80.1; Platelet Count 241 10^3/uL (130-400); RBC 4.45 10^6/uL (3.93-5.22); RDW 12.8 % (11.7-14.6); RDW-SD 45.2 fL; WBC 11.87 10^3/uL (4.4-10.8)
[2023-03-07 22:40] LABS: Absolute Neutrophil Count 9.51 10^3/uL (1.2-6.7)
== END 2023-03-07 11:26 | disposition home or self-care (01) ==
LOC: LBN 11:25
PROVIDERS: PCP Family Medicine; Visit Provider Physician Assistant
DX: R53.81 Other malaise (principal); R53.83 Other fatigue
CPT/HCPCS: 80053; 85025

== ENCOUNTER 2023-03-09 12:45 | Emergency (ER) | payer MEDICARE, SELFPAY ==
[2023-03-09 12:47] VITALS: BP 140/95; PULSE 80; RESP 14; TEMP 36.8; O2SAT 97
--- NOTE | 2023-03-09 13:00 | DI.CT_ITS ---
Exam(s) CT CHEST W EXAM: CT CHEST W CLINICAL HISTORY: right breast pain,recent removal implant and drain TECHNIQUE: Imaging Protocol: Axial computed tomography images with coronal and sagittal reformatted images were created and reviewed CONTRAST MATERIAL: Intravenous: Omnipaque 350 Contrast volume:80 ml. COMPARISON: MG SCREENING LOKESH MAMMO W/CAD DIGI from 07/13/2009 CR XR CHEST 2V PA LATERAL from 07/19/2022 FINDINGS: Pulmonary parenchyma: No consolidation. No dominant measurable mass. Tracheobronchial tree: No bronchiectasis or mucous plugging. Mediastinum and Khadijah: No dominant adenopathy or fluid collection. Pleura: No effusion. No pneumothorax. Heart: The heart is not dilated. Mild coronary artery calcifications are seen. Aorta: Thoracic aorta non-dilated. Mild atherosclerotic changes. Upper abdomen: Small hiatal hernia. Bones: Minimal degenerative changes in the spine. No compression fracture. No lytic or blastic lesion. Soft tissues: Status post bilateral mastectomy. Left chest unremarkable. Right chest shows skin thi ckening. Fluid collection with thick rim noted beneath the right pectoralis major muscle measuring 1 1 x 3.5 x 11.5 cm. IMPRESSION: 11 cm seroma versus abscess in the right chest wall status post removal of breast implant. No acute pulmonary abnormality. RADIATION DOSE DELIVERED: Total DLP DATA REPOSITORY: All CT scans at this facility are submitted to the National Radiology Data Registry (NRDR) Dose Index Registry (DIR) with the [employer] ([employer]). RADIATION OPTIMIZATION: All CT scans at this facility use at least one of these dose optimization te chniques: automated exposure control; mA and/or kV adjustment per patient size (includes targeted exa ms where dose is matched to clinical indication); or iterative reconstruction.
[2023-03-09 13:23] LABS: Lactate 0.7 mmol/L (0.6-1.4)
[2023-03-09 13:28] LABS: Abs Immature Grans 0.06 10^3/uL (0.0-0.06); Absolute Basophil Count 0.06 10^3/uL (0.0-0.2); Absolute Eosinophil Count 0.17 10^3/uL (0.0-0.7); Absolute Neutrophil Count 7.04 10^3/uL (1.2-6.7); Basophils % 0.6; Eosinophils % 1.7; HCT 40.2 % (36.0-46.0); HGB 13.5 g/dL (11.2-15.7); Immature Grans % 0.6; Lymphocytes % 15.4; MCH 32.4 pg (27.0-33.0); MCHC 33.6 % (32.0-36.0); MCV 96 fL (80-95); MPV 8.6 fL (8.0-11.0); Monocytes % 9.2; Neutrophils % 72.5; Platelet Count 247 10^3/uL (130-400); RBC 4.17 10^6/uL (3.93-5.22); RDW 12.8 % (11.7-14.6); RDW-SD 45.8 fL; WBC 9.73 10^3/uL (4.4-10.8)
[2023-03-09 13:44] LABS: ALT 33 U/L (14-59); AST 26 U/L (15-37); Albumin 3.7 g/dL (3.4-5.0); Alkaline Phosphatase 58 U/L (46-116); Anion Gap 8.6 mmol/L (3-11); BUN 12 mg/dL (7-18); Bilirubin, Total 0.6 mg/dL (0.2-1.0); CO2 27.4 mmol/L (21.0-32.0); CREATININE 0.8 mg/dL (0.55-1.02); Calcium 9.5 mg/dL (8.5-10.1); Chloride 100 mmol/L (98-107); Estimated GFR 79.22 (mL/min/1.73m2); Glucose 109 mg/dL (74-106); Potassium 3.8 mmol/L (3.5-5.1); Sodium 136 mmol/L (136-145); Total Protein 7.9 g/dL (6.4-8.2)
[2023-03-09 14:10] LABS: Procalcitonin < 0.1 ng/mL
[2023-03-09] MEDS: Normal Saline - Diluent 50 ML VIAL IJ (14:21)
[2023-03-09] MEDS: Normal Saline Flush 10 ML SYR IVP (14:23)
[2023-03-09] MEDS: Omnipaque 350 MG/ML 100 ML BTL IJ (14:23)
--- NOTE | 2023-03-09 14:42 | DI.VRAD_ITS ---
PROCEDURE INFORMATION: Exam: CT Chest With Contrast; Diagnostic Exam date and time: 03/09/2023 2:12 PM Age: 72 years old Clinical indication: Other: Right breast pain, recent removal implant and drain TECHNIQUE: Imaging protocol: Diagnostic computed tomography of the chest with contrast. 3D rendering (Not supervised by radiologist): MIP and/or 3D reconstructed images were created by the technologist. Contrast material: OMNIPAQUE 350; Contrast volume: 80 ml; Contrast route: INTRAVENOUS (IV); COMPARISON: CR XR CHEST 2V PA LATERAL 19/07/2022 13:32 FINDINGS: Lungs: Unremarkable. No consolidation. No masses. Pleural spaces: Unremarkable. No pneumothorax. No pleural effusion. Heart: Retrocardiac gastric hernia. Coronary arteries: Calcified coronary arteries. Lymph nodes: Unremarkable. No enlarged lymph nodes. Vasculature: Mild atherosclerotic disease. Gallbladder and bile ducts: Distended gallbladder. Spleen: Splenic granuloma. Bones/joints: Unremarkable. No acute fracture. Soft tissues: Rim enhancing loculated fluid collection in the right anterior chest within the right breast measuring 11 cm anterior to lateral, 3.6 cm in maximum thickness and 11.5 cm superior to inferiorly. Possible prior left mastectomy. IMPRESSION: 1. Large rim enhancing loculated fluid collection in the soft tissues of the right breast consistent with seroma or possible abscess. The fluid collection is amenable to drainage. Recommend ultrasound for further evaluation and possible aspiration. 2. Multiple additional findings as discussed above. Dictated and Authenticated by: Sadie Power MD. Ordering:HIRO Davies MD
--- NOTE | 2023-03-09 15:27 | ED.GENADUL_ITS ---
Discharge Plan Disposition Patient Disposition: Home Condition: Stable Discharge Details Clinical Impression: Seroma of breast Primary Care Provider: Lianna Matias ED Provider: Shahram Damon Home Meds and New Rx's Prescriptions: No Action DHEA 50 mg capsule 50 mg PO DAILY Qty: 30 0RF Rx Instructions: OTC nystatin 100,000 unit/mL suspension 500,000 unit buccal QID Qty: 480 0RF Rx Instructions: administer 1/2 of dose in each side of the mouth, hold in mouth as long as possible, then spit vmwytvj-bukc-kfzgr-oreg-capryl 100 mg-150 mg- 50 mg-150 mg capsule 1 cap PO clotrimazole 10 mg flor 10 mg mucous membrane TID Qty: 90 12RF prednisone 1 mg tablet 3 mg PO DAILY esomeprazole magnesium [Nexium] 20 MG capsule,delayed release(DR/EC) 20 mg PO DAILY magnesium oxide 400 MG capsule 400 mg PO DAILY acetaminophen [Tylenol] 325 MG tablet 650 mg PO 2 TABS PRN cholecalciferol (vitamin D3) 1,000 unit capsule 2,000 unit PO DAILY ascorbic acid (vitamin C) [Vitamin C] 500 mg tablet 1 g PO DAILY cyclobenzaprine 10 mg tablet 10 mg PO HS PRN (Reason: muscle spasm) Qty: 30 0RF acyclovir 400 mg tablet 400 mg PO 5X/DAY PRN (Reason: hs) Qty: 35 5RF pilocarpine HCl 5 mg tablet 5 mg PO BID Qty: 60 5RF azathioprine [Imuran] 50 mg tablet 50 mg PO DAILY Qty: 90 1RF levothyroxine 112 mcg capsule 112 mcg PO DAILY Qty: 90 3RF losartan 50 mg tablet 50 mg PO DAILY Qty: 30 12RF fluconazole [Diflucan] 150 mg tablet 150 mg PO ONCE Qty: 1 3RF Rx Instructions: as a single dose Discharge Instructions Additional Instructions: Please go straight to [facility] emergency department and the plastic surgery team will see you as soon as they are available once you are in a room. Referrals: [facility] [Outside] Discharge Data Discharge Date/Time-TO BE ENTERED AT DEPARTURE: 03/09/23 16:49 Medical Decision Making <ARASH Ramsay - Last Filed: 03/11/23 18:34> 72-year-old female, no acute distress, stable vitals presenting with right breast tenderness, redness, and induration. Symptoms began approximately 48 hours prior to arrival. Patient has stable vitals is afebrile, no leukocytosis, prolactin within normal limits, lactate negative Is exhibiting induration and erythema to right chest, CT was ordered for further evaluation, CT shows evidence of 11 x 3.6 x 11.5 cm area of seroma versus abscess to the right breast, [facility] called at approximately 1445, pending return call at this time of note, patient does have an appointment at 830 with her plastic surgery team at [facility] on Saturday. <Shahram Damon NP - Last Filed: 03/09/23 20:01> 72-year-old female, no acute distress, stable vitals presenting with right breast tenderness, redness, and induration. Symptoms began approximately 48 hours prior to arrival. Patient has stable vitals is afebrile, no leukocytosis, prolactin within normal limits, lactate negative Is exhibiting induration and erythema to right chest, CT was ordered for further evaluation, CT shows evidence of 11 x 3.6 x 11.5 cm area of seroma versus abscess to the right breast, [facility] called at approximately 1445, pending return call at this time of note, patient does have an appointment at 830 with her plastic surgery team at [facility] on Saturday. 1600-received signout from ARASH Nielsen. Pending [facility] consult from plastic surgery in regards to patient's disposition for abscess versus seroma 1610-spoke to [facility] plastic surgeon Dr. Napier. After discussion of CT findings labs and patient presentation he requested patient be transferred to [facility] emergency department for in person evaluation by specialty team. He stated no need for antibiotics or any interventions from us at this time we both agreed patient is stable for private vehicle transfer. Patient is in agreement with this plan of care and states no concern about private vehicle transfer. Patient states understanding to go straight to [facility] emergency department. ED excepting physician is noted as Dr. Morin. Patient discharged in stable condition with no reported worsening condition and no other needs stated. Imaging Data Radiologic Study: Imaging: CT Scan Radiologist's impression: Exam(s) PROCEDURE INFORMATION: Exam: CT Chest With Contrast; Diagnostic Exam date and time: 03/09/2023 2:12 PM Age: 72 years old Clinical indication: Other: Right breast pain, recent removal implant and drain TECHNIQUE: Imaging protocol: Diagnostic computed tomography of the chest with contrast. 3D rendering (Not supervised by radiologist): MIP and/or 3D reconstructed images were created by the technologist. Contrast material: OMNIPAQUE 350; Contrast volume: 80 ml; Contrast route: INTRAVENOUS (IV); COMPARISON: CR XR CHEST 2V PA LATERAL 19/07/2022 13:32 FINDINGS: Lungs: Unremarkable. No consolidation. No masses. Pleural spaces: Unremarkable. No pneumothorax. No pleural effusion. Heart: Retrocardiac gastric hernia. Coronary arteries: Calcified coronary arteries. Lymph nodes: Unremarkable. No enlarged lymph nodes. Vasculature: Mild atherosclerotic disease. Gallbladder and bile ducts: Distended gallbladder. Spleen: Splenic granuloma. Bones/joints: Unremarkable. No acute fracture. Soft tissues: Rim enhancing loculated fluid collection in the right anterior chest within the right breast measuring 11 cm anterior to lateral, 3.6 cm in maximum thickness and 11.5 cm superior to inferiorly. Possible prior left mastectomy. IMPRESSION: 1. Large rim enhancing loculated fluid collection in the soft tissues of the right breast consistent with seroma or possible abscess. The fluid collection is amenable to drainage. Recommend ultrasound for further evaluation and possible aspiration. 2. Multiple additional findings as discussed above. Lab Data Lab results reviewed: Yes I reviewed the patient's lab results. HPI <ARASH Ramsay - Last Filed: 03/11/23 18:34> General Date/Time Provider Initiated Documentation: 03/09/23 13:03 . HPI Narrative: This 72-year-old female presents with report of removal of bilateral silicone implants in November at [facility]. Patient reportedly had a ruptured implant on the right side. She had double mastectomy secondary to history of positive BRCA gene. The implants were removed secondary to patient experiencing localized reaction symptoms. The right silicone implant was reportedly ruptured. Patient developed seroma 2 months later and had drain placed and removed on 06 March. This fluid was not infected at that time per patient. She presents today secondary to increased swelling, some mild redness and firmness to her right breast. She is also having some mild discomfort. She states this is different from when there is isolated fluid collection. She denies any temperature greater than 100.1. Denies any urinary symptoms or chest pain. Related Data Home Medications Medication Instructions Recorded Confirmed esomeprazole magnesium 20 mg 20 mg PO DAILY 11/25/13 03/09/23 capsule,delayed release (Nexium) magnesium oxide 400 mg PO DAILY 07/01/14 03/09/23 acetaminophen 325 mg tablet 650 mg PO 2 TABS PRN 07/27/14 03/09/23 (Tylenol) cholecalciferol (vitamin D3) 25 2,000 unit PO DAILY 04/27/19 03/09/23 mcg (1,000 unit) capsule prasterone (dhea) 50 mg capsule 50 mg PO DAILY #30 caps 05/04/20 03/09/23 (DHEA) tumeric 100 mg-nadeen 150 mg-olive 1 cap PO 03/15/21 03/07/23 50 mg-oreg 150 mg-caprylate capsule ascorbic acid (vitamin C) 500 mg 1 g PO DAILY 03/21/22 03/09/23 tablet (Vitamin C) clotrimazole 10 mg flor 10 mg mucous membrane TID #90 tabs 04/24/22 03/09/23 cyclobenzaprine 10 mg tablet 10 mg PO HS PRN muscle spasm #30 05/01/22 03/09/23 tab-caps acyclovir 400 mg tablet 400 mg PO 5X/DAY PRN hs #35 tabs 08/27/22 03/09/23 pilocarpine HCl 5 mg tablet 5 mg PO BID #60 tabs 10/24/22 03/09/23 prednisone 1 mg tablet 3 mg PO DAILY 10/30/22 03/09/23 azathioprine 50 mg tablet (Imuran) 50 mg PO DAILY #90 tabs 11/19/22 03/09/23 levothyroxine 112 mcg capsule 112 mcg PO DAILY #90 caps 12/11/22 03/09/23 losartan 50 mg tablet 50 mg PO DAILY #30 tabs 01/14/23 03/09/23 fluconazole 150 mg tablet 150 mg PO ONCE #1 tab 01/25/23 03/09/23 (Diflucan) nystatin 100,000 unit/mL oral 500,000 unit (5 mL) buccal QID 03/07/23 03/09/23 suspension #480 mL Previous Rx's Medication Instructions Recorded prasterone (dhea) 50 mg capsule 50 mg PO DAILY #30 caps 05/04/20 (DHEA) clotrimazole 10 mg flor 10 mg mucous membrane TID #90 tabs 04/24/22 cyclobenzaprine 10 mg tablet 10 mg PO HS PRN muscle spasm #30 05/01/22 tab-caps acyclovir 400 mg tablet 400 mg PO 5X/DAY PRN hs #35 tabs 08/27/22 pilocarpine HCl 5 mg tablet 5 mg PO BID #60 tabs 10/24/22 azathioprine 50 mg tablet (Imuran) 50 mg PO DAILY #90 tabs 11/19/22 levothyroxine 112 mcg capsule 112 mcg PO DAILY #90 caps 12/11/22 losartan 50 mg tablet 50 mg PO DAILY #30 tabs 01/14/23 fluconazole 150 mg tablet 150 mg PO ONCE #1 tab 01/25/23 (Diflucan) nystatin 100,000 unit/mL oral 500,000 unit (5 mL) buccal QID 03/07/23 suspension #480 mL Allergies Allergy/AdvReac Type Severity Reaction Status Date / Time Penicillins Allergy Severe SKIN RASH Verified 03/09/23 13:37 vancomycin AdvReac Mild FLUSHING Verified 03/09/23 13:37 gluten AdvReac Unknown ABDOMINAL Verified 03/09/23 13:37 CRAMPS General Stated Complaint: [facility]Medical MARTIN: 3 PFSH <ARASH Ramsay - Last Filed: 03/11/23 18:34> All Active Problems (Updated 03/09/23 @ 16:39 by Shahram Damon NP) Seroma of breast (Acute) Osteopenia (Chronic) on Reclast infusion through [facility]. 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 Sjogrens syndrome (Acute) Corticosteroid dependence (Chronic) Fatty liver disease, nonalcoholic (Acute) stage 2-3 fibrosis on fibroscan through [facility] Essential hypertension (Acute) Glossitis (Acute) Nasal septal perforation (Acute) Breast implant status (Acute) Medical History COVID (~01/11/22) treated with Molnupiravir Nondiabetic gastroparesis Lateral malleolar fracture Polyp of colon Family hx of ovarian malignancy (09/24/12) Family hx-breast malignancy (09/24/12) Calderon neuroma RIGHT H/O herpes simplex infection (06/16/12) BRCA2 positive negative pancreatic evaluation with EUS at [facility]; s/p bilat mastectomy oophorectomy Hypothyroidism Hepatitis autoimmune w/some cirrhosis Surgical History History of bilateral oophorectomy Status post bilateral mastectomy bilateral, elective for BRCA2+ gene carrier Status post thyroidectomy (~1994) Endometrial Biopsy (10/11/15) DR. 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 Pets and animals: Yes Sexually active: Yes Do you think of yourself as: straight/heterosexual What type of physical activity do you participate in: advised to exercise at least 150 min/week (moderate intensity aerobic) and advised to perform resistance training at least 2x/week [employer]: [employer] Seatbelt use: always Helmet use: Yes Drive intox or ride w/intox hammer driver: No Do you feel safe at home: Yes Do you feel safe in your relationship?: Yes Victim of physical abuse: No Victim of emotional abuse: No Victim of sexual abuse: No Would you like helpful sources: No Female Reproductive History Menstrual Menopause type: natural History History 1 Para 1 Hx # Term Pregnancies Multiple births Hx # Pregnancies Ectopic pregnancies AB induced Hx Number of Living Children AB spontaneous Course <ARASH Ramsay - Last Filed: 03/11/23 18:34> Vital Signs Vital signs: Vital Signs Temperature 36.8 C 03/09/23 12:47 Pulse 80 03/09/23 12:47 Respiratory Rate 14 03/09/23 12:47 Blood Pressure 140/95 H 03/09/23 12:47 Pulse Oximetry 97 03/09/23 12:47 Temperature 36.8 C 03/09/23 12:47 Temperature Source Skin 03/09/23 12:47 Pulse 80 03/09/23 12:47 Respiratory Rate 14 03/09/23 12:47 Respiratory Effort Normal, Non-Labored 03/09/23 13:33 Blood Pressure 140/95 H 03/09/23 12:47 Blood Pressure Position Sitting 03/09/23 12:47 Pulse Oximetry 97 03/09/23 12:47 Oxygen Delivery Method Room Air 03/09/23 12:47 Oxygen Flow Rate 0 03/09/23 12:47 Pain Level 2 03/09/23 12:47 Lab/Test Results Lab/Test Results: 03/09/23 13:46 Blood Blood Culture - Pending 03/09/23 13:15 Blood Blood Culture - Pending Laboratory Tests Range/Units 03/09/23 13:15 WBC (4.4-10.8) 10^3/uL 9.73 RBC (3.93-5.22) 10^6/uL 4.17 Hgb (11.2-15.7) g/dL 13.5 Hct (36.0-46.0) % 40.2 MCV (80-95) fL 96 H MCH (27.0-33.0) pg 32.4 MCHC (32.0-36.0) % 33.6 RDW (11.7-14.6) % 12.8 Plt Count (130-400) 10^3/uL 247 MPV (8.0-11.0) fL 8.6 Immature Gran % 0.6 Neutrophils % 72.5 Lymphocytes % 15.4 Monocytes % 9.2 Eosinophils % 1.7 Basophils % 0.6 Nucleated RBC % (0.0-0.3) % 0.0 Absolute Neutrophils (1.2-6.7) 10^3/uL 7.04 H Absolute Lymphocytes (1.2-3.4) 10^3/uL 1.50 Absolute Monocytes (0.1-0.8) 10^3/uL 0.90 H Absolute Eosinophils (0.0-0.7) 10^3/uL 0.17 Absolute Basophils (0.0-0.2) 10^3/uL 0.06 VBG Lactate (0.6-1.4) mmol/L 0.7 Sodium (136-145) mmol/L 136 Potassium (3.5-5.1) mmol/L 3.8 Chloride (98-107) mmol/L 100 Carbon Dioxide (21.0-32.0) mmol/L 27.4 Anion Gap (3-11) mmol/L 8.6 BUN (7-18) mg/dL 12 Creatinine (0.55-1.02) mg/dL 0.8 Est GFR (CKD-EPI 2020) (mL/min/1.73m2) 79.22 Glucose (74-106) mg/dL 109 H Calcium (8.5-10.1) mg/dL 9.5 Total Bilirubin (0.2-1.0) mg/dL 0.6 AST (15-37) U/L 26 ALT (14-59) U/L 33 Alkaline Phosphatase (46-116) U/L 58 Total Protein (6.4-8.2) g/dL 7.9 Albumin (3.4-5.0) g/dL 3.7 Procalcitonin ng/mL < 0.1 Sign Out <ARASH Ramsay - Last Filed: 03/11/23 18:34> Sign Out Data: Sign Out Comment: pending [facility] return call and dispo Last updated by Keke Bone PA at 03/09/23 15:51
[2023-03-09 16:49] VITALS: BP 133/87; PULSE 66; RESP 18; O2SAT 95
== END 2023-03-09 16:49 | disposition home or self-care (01) ==
PROVIDERS: Physician Assistant; Emergency Provider Nurse Practitioner Family; PCP Family Medicine
DX: N64.89 Other specified disorders of breast (principal)
CPT/HCPCS: 80053; 84145; 87040; 99284; 71260; 83605; 85025; 99285; J3490

== ENCOUNTER 2023-04-03 01:18 | Outpatient (CLI) | payer MEDICARE, SELFPAY | END 2023-04-03 01:19 | disposition home or self-care (01) | LOC: LOS 01:20 | PROVIDERS: PCP Family Medicine; Visit Provider Family Medicine | DX: E03.9 Hypothyroidism, unspecified (principal) | CPT/HCPCS: 36415; 84443 ==

== ENCOUNTER → 2023-04-24 14:09 | Outpatient (BNVA) | payer MEDICARE, SELFPAY | PROVIDERS: PCP Family Medicine; Referring Provider Family Medicine; Visit Provider Podiatrist | DX: L84 Corns and callosities (principal); M79.671 Pain in right foot; S90.851A Superficial foreign body, right foot, initial encounter; X58.XXXA Exposure to other specified factors, initial encounter | CPT/HCPCS: 10120 ==

== ENCOUNTER 2023-04-24 22:21 | Outpatient (CLI) | payer MEDICARE, SELFPAY ==
[2023-04-24 15:30] LABS: ESR 3 mm/hr (0-30)
== END 2023-04-24 22:22 | disposition home or self-care (01) ==
LOC: LBO 22:24
PROVIDERS: PCP Family Medicine; Visit Provider Family Medicine
DX: M25.511 Pain in right shoulder (principal); M25.512 Pain in left shoulder
CPT/HCPCS: 36415; 85652

== ENCOUNTER → 2023-05-02 02:06 | Outpatient (CLI) | payer MEDICARE, SELFPAY ==
--- NOTE | 2023-05-02 08:30 | DI.RAD_ITS ---
Exam(s) XR FOOT RT COMPLETE EXAM: XR FOOT RT COMPLETE CLINICAL HISTORY: Right foot subsecond metatarsophalangeal joint foreign body,s90.216r. TECHNIQUE: 2D digital imaging was performed. Three views. COMPARISON: No exams were available for comparison FINDINGS: BONES: No acute fracture is present. No bony destructive lesion is seen. Degenerative cyst in the ba se of the 3rd metatarsal. JOINTS: No dislocation present. Degenerative changes at the 3rd tarsal metatarsal joint. Hammertoe deformities. SOFT TISSUE: Normal. IMPRESSION: Degenerative changes at the 3rd tarsometatarsal joint. Hammertoe deformities. DATA REPOSITORY: RADIATION DOSE DELIVERED:
== END ==
PROVIDERS: PCP Family Medicine; Visit Provider Podiatrist
DX: M19.072 Primary osteoarthritis, left ankle and foot (principal)
CPT/HCPCS: 73630

== ENCOUNTER → 2023-07-01 03:24 | Outpatient (CLI) | payer MEDICARE, SELFPAY ==
--- NOTE | 2023-07-01 06:45 | DI.US_ITS ---
Exam(s) US CHEST EXAM: US CHEST CLINICAL HISTORY: right chest wall mass, post breast implant removal,z98.82,r22.2 TECHNIQUE: Ultrasound performed using standard protocol. COMPARISON: CT CT CHEST W from 03/09/2023 FINDINGS: This patient has had prior removal of bilateral breast implants. Following that procedure she appare ntly had seroma and possible abscess on the right side which apparently required multiple aspirations and drain placements. There are no drains in place seen on the CT scan of 03/09/2023. The patient claims that this fluid collection is further increasing in size since the CT scan of 03/09/2023. She denies fever/chills. Today's ultrasound reveals a well-defined 11 by 3 cm fluid collection corresponding to the finding o n the mammogram of 03/09/2023. There is a single mural nodularity anteriorly within the collection, this measuring approximately 6 x 5 mm. No internal septations evident. There is no regional hyperem ia evident. Scanning of the ipsilateral axilla is negative for significant adenopathy. IMPRESSION: Prominent 11 x 3 cm fluid collection in the right breast corresponds what is seen on CT scan of 03/09. Given the history here this is most probably a seroma, less likely an abscess given her lack of infectious symptoms. Nevertheless ultrasound-guided aspiration is recommended for both therapeuti c and diagnostic reasons. BI-RADS category: 2-probably benign Breast density category: B-scattered densities DATA REPOSITORY:
--- NOTE | 2023-07-01 09:20 | DI.RAD_ITS ---
Exam(s) XR SHOULDER RT COMPLETE 2+V EXAM: XR SHOULDER RT COMPLETE 2+V CLINICAL HISTORY: right shoulder pain,arthritis, m19.011. TECHNIQUE: 2D digital imaging was performed. Five views. COMPARISON: No exams were available for comparison FINDINGS: BONES: No acute fracture is present. No bony destructive lesion is seen. JOINTS: No dislocation present. Mild spurring at the AC joint and glenoid. Glenohumeral joint space is maintained. SOFT TISSUE: Normal. IMPRESSION: Mild degenerative changes DATA REPOSITORY: RADIATION DOSE DELIVERED:
== END ==
PROVIDERS: PCP Family Medicine; Visit Provider Family Medicine
DX: M19.011 Primary osteoarthritis, right shoulder (principal); R22.2 Localized swelling, mass and lump, trunk; Z98.82 Breast implant status
CPT/HCPCS: 73030; 76604

== ENCOUNTER → 2023-08-28 10:59 | Outpatient (BNVA) | payer MEDICARE, SELFPAY | PROVIDERS: PCP Family Medicine; Referring Provider Family Medicine; Visit Provider Student in an Organized Health Care Education/Training Program | DX: M67.921 Unspecified disorder of synovium and tendon, right upper arm (principal) | CPT/HCPCS: 99213 ==

== ENCOUNTER 2023-09-25 14:48 | Outpatient (CLI) | payer MEDICARE, SELFPAY ==
[2023-09-25 14:58] LABS: Abs Immature Grans 0.02 10^3/uL (0.0-0.06); Absolute Basophil Count 0.03 10^3/uL (0.0-0.2); Absolute Eosinophil Count 0.33 10^3/uL (0.0-0.7); Absolute Lymphocyte Count 1.23 10^3/uL (1.2-3.4); Absolute Monocyte Count 0.68 10^3/uL (0.1-0.8); Absolute Neutrophil Count 4.78 10^3/uL (1.2-6.7); Basophils % 0.4 %; Eosinophils % 4.7 %; HCT 40.5 % (36.0-46.0); HGB 13.4 g/dL (11.2-15.7); Immature Grans % 0.3 %; Lymphocytes % 17.4 %; MCH 32.5 pg (27.0-33.0); MCHC 33.1 % (32.0-36.0); MCV 98 fL (80-95); MPV 8.4 fL (8.0-11.0); Monocytes % 9.6 %; Neutrophils % 67.6 %; Platelet Count 248 10^3/uL (130-400); RBC 4.12 10^6/uL (3.93-5.22); RDW 12.5 % (11.7-14.6); RDW-SD 45.2 fL; WBC 7.07 10^3/uL (4.4-10.8)
[2023-09-25 14:59] LABS: ESR 9 mm/hr (0-30)
[2023-09-25 15:58] LABS: ALT 31 U/L (14-59); AST 28 U/L (15-37); Albumin 3.7 g/dL (3.4-5.0); Alkaline Phosphatase 68 U/L (46-116); Anion Gap 8.8 mmol/L (3-11); BUN 13 mg/dL (7-18); Bilirubin, Total 0.4 mg/dL (0.2-1.0); CO2 29.2 mmol/L (21.0-32.0); CREATININE 0.8 mg/dL (0.55-1.02); Calcium 9.1 mg/dL (8.5-10.1); Calculated LDL 140 mg/dL (<100); Chloride 103 mmol/L (98-107); Cholesterol 232 mg/dL (<200); Estimated GFR 78.72 (mL/min/1.73m2); Glucose 88 mg/dL (74-106); HDL Cholesterol 57 mg/dL (40-60); Potassium 3.8 mmol/L (3.5-5.1); Sodium 141 mmol/L (136-145); TSH (W/Ref FT4) 2.41 uIU/mL (0.36-3.74); Total Protein 6.9 g/dL (6.4-8.2); Triglyceride 176 mg/dL (<150)
[2023-09-25 16:15] LABS: C-Reactive Protein 0.95 mg/dL (<or=0.5)
[2023-09-25 16:30] LABS: Hemoglobin A1C 5.7 % (<5.7)
[2023-09-26 17:58] LABS: Rheumatoid Factor 11.3 IU/mL (<12.0)
== END 2023-09-25 14:49 | disposition home or self-care (01) ==
LOC: LBO 14:48
PROVIDERS: PCP Family Medicine; Visit Provider Nurse Practitioner Family
DX: Z00.00 Encounter for general adult medical examination without abnormal findings (principal); E78.5 Hyperlipidemia, unspecified; K75.4 Autoimmune hepatitis; M35.00 Sjogren syndrome, unspecified; E03.9 Hypothyroidism, unspecified
CPT/HCPCS: 36415; 80053; 80061; 85652; 83036; 84443; 85025; 86140; 86431

== ENCOUNTER → 2023-09-26 02:58 | Outpatient (CLI) | payer MEDICARE, SELFPAY ==
--- NOTE | 2023-09-26 11:18 | DI.RAD_ITS ---
Exam(s) XR KNEE RT 3V AP,LAT,RENU EXAM: XR KNEE RT 3V AP,LAT,RENU CLINICAL HISTORY: bilateral knee pain, osteoarthritis?, M25.561, M25.562. TECHNIQUE: 2D digital imaging was performed. COMPARISON: CR XR KNEE LT 3V AP,LAT,RENU from 09/26/2023 FINDINGS: 3 views No evidence of fracture. Small amount of increased joint fluid. Bone density normal. There is mild -moderate degenerative change in the lateral compartment. Mild degenerative changes medial compartme nt. Patellofemoral compartment appears unremarkable. Bone density normal. No osseous lesions. IMPRESSION: Mild degenerative changes, slightly more so in the lateral compartment. No prominent joint space ez rowing. Small joint effusion. DATA REPOSITORY: RADIATION DOSE DELIVERED:
--- NOTE | 2023-09-26 11:18 | DI.RAD_ITS ---
Exam(s) XR KNEE LT 3V AP,LAT,RENU EXAM: XR KNEE LT 3V AP,LAT,RENU CLINICAL HISTORY: bilateral knee pain, osteoarthritis?, M25.561, M25.562. TECHNIQUE: 2D digital imaging was performed. COMPARISON: CR LEFT KNEE LIMITED 1 OR 2 VIEWS from 02/14/2012 FINDINGS: 3 views No evidence of fracture nor joint effusion. And bone density normal. No osseous lesions. No obviou s joint space narrowing. No osteophytes. No osteochondral defects IMPRESSION: No fracture evident. No significant degenerative changes. DATA REPOSITORY: RADIATION DOSE DELIVERED:
== END ==
PROVIDERS: PCP Family Medicine; Visit Provider Nurse Practitioner Family
DX: M25.561 Pain in right knee (principal); M25.562 Pain in left knee
CPT/HCPCS: 73562

== ENCOUNTER 2024-02-28 02:47 | Outpatient (CLI) | payer MEDICARE, SELFPAY ==
[2024-02-28 12:09] LABS: Abs Immature Grans 0.02 10^3/uL (0.0-0.06); Absolute Basophil Count 0.03 10^3/uL (0.0-0.2); Absolute Eosinophil Count 0.21 10^3/uL (0.0-0.7); Absolute Lymphocyte Count 1.57 10^3/uL (1.2-3.4); Absolute Monocyte Count 0.72 10^3/uL (0.1-0.8); Basophils % 0.5 %; Eosinophils % 3.2 %; HCT 42.1 % (36.0-46.0); Immature Grans % 0.3 %; Lymphocytes % 23.6 %; MCHC 33.3 % (32.0-36.0); MCV 96 fL (80-95); MPV 9.5 fL (8.0-11.0); Monocytes % 10.8 %; Neutrophils % 61.6 %; Platelet Count 247 10^3/uL (130-400); RBC 4.38 10^6/uL (3.93-5.22); RDW 13.3 % (11.7-14.6); RDW-SD 47.5 fL; WBC 6.65 10^3/uL (4.4-10.8)
[2024-02-28 12:19] LABS: ALT 32 U/L (14-59); AST 24 U/L (15-37); Albumin 3.5 g/dL (3.4-5.0); Alkaline Phosphatase 59 U/L (46-116); Anion Gap 7.8 mmol/L (3-11); BUN 13 mg/dL (7-18); Bilirubin, Total 0.55 mg/dL (0.2-1.0); CO2 28.2 mmol/L (21.0-32.0); CREATININE 0.9 mg/dL (0.55-1.02); Calcium 9.1 mg/dL (8.5-10.1); Chloride 102 mmol/L (98-107); Estimated GFR 68.35 (mL/min/1.73m2); Glucose 117 mg/dL (74-106); Potassium 3.8 mmol/L (3.5-5.1); Sodium 138 mmol/L (136-145); Total Protein 7.4 g/dL (6.4-8.2)
== END 2024-02-28 02:48 | disposition home or self-care (01) ==
LOC: LOS 02:48
PROVIDERS: PCP Family Medicine; Visit Provider Internal Medicine Gastroenterology
DX: K75.4 Autoimmune hepatitis (principal)
CPT/HCPCS: 36415; 80053; 85025

== ENCOUNTER 2024-03-02 01:08 | Outpatient (CLI) | payer MEDICARE, SELFPAY ==
--- NOTE | 2024-03-02 | DI.DEXA_ITS ---
Exam(s) XR DEXA BONE DENSITY W/WO KANDACE EXAM: XR DEXA BONE DENSITY W/WO KANDACE CLINICAL HISTORY: OSTEOPENIA AFTER MENOPAUSE Z78.0,screening for osteoporosis TECHNIQUE: Routine DEXA evaluation of the lumbar spine, hip, or forearm. COMPARISON: CR XR DEXA BONE DENSITY W/WO KANDACE from 02/01/2022 FINDINGS: Performed on a [employer] unit. Lateral image: No compression fracture evident. Lumbar Spine total T-score: -1.5. Prior reading January 2022 was -2.0 Hip total T-score:-1.2. Prior reading January 2022 was -1.3 Independent reading at the level of the femoral neck yields T-score of -2.0. Prior reading in 2021 was -2.3 Forearm total T-score: -1.3. Prior reading in 2021 was minus 0.8. IMPRESSION: Bone mineral density measures in the osteopenia range. Fracture risk remains moderate. Note: Any spine fracture indicates 5x risk for subsequent spine fracture and 2x risk for subsequent h ip fracture. World Health Organization criteria for BMD interpretation classify patients: Normal...... T- Score at or above -1.0 Osteopenic... T- Score between -1.0 and -2.5 Osteoporosis... T-Score at or below -2.5
== END 2024-03-02 01:28 ==
LOC: DI 01:09
PROVIDERS: PCP Family Medicine; Visit Provider Internal Medicine Rheumatology
DX: Z78.0 Asymptomatic menopausal state (principal); Z13.820 Encounter for screening for osteoporosis; M85.89 Other specified disorders of bone density and structure, multiple sites
CPT/HCPCS: 77080

== ENCOUNTER → 2024-03-03 07:53 | Outpatient (BNVA) | payer MEDICARE, SELFPAY | PROVIDERS: PCP Family Medicine; Referring Provider Family Medicine; Visit Provider Student in an Organized Health Care Education/Training Program | DX: M67.921 Unspecified disorder of synovium and tendon, right upper arm (principal); M75.101 Unspecified rotator cuff tear or rupture of right shoulder, not specified as traumatic | CPT/HCPCS: 99213 ==

== ENCOUNTER 2024-04-09 00:58 | Outpatient (CLI) | payer MEDICARE, SELFPAY ==
--- NOTE | 2024-04-09 08:36 | DI.MRI_ITS ---
Exam(s) MR UPPER JOINT RT WO EXAM: MR UPPER JOINT RT WO CLINICAL HISTORY: ? ROTATOR CUFF TEAR,tendinopathy rt biceps tendon,m67.921. TECHNIQUE: Multiplanar multisequence MRI was performed. COMPARISON: CR XR SHOULDER RT COMPLETE 2+V from 07/01/2023 FINDINGS: The examination is limited due to patient motion artifact. BONES: There is no fracture or contusion pattern. JOINTS: There are moderate degenerative changes seen at the acromioclavicular joint. The glenohumera l joint is normal. TENDONS: Supraspinatus: There is a full-thickness tear of the supraspinatus tendon anteriorly at the insertion site. Infraspinatus: There is hyperintense signal seen at the musculotendinous junction of the infraspinatu s tendon consistent with a partial tear. Subscapularis: Unremarkable. Teres Minor: Unremarkable. Biceps and Daphne: Unremarkable. MUSCLES: Unremarkable. GLENOID LABRUM: Unremarkable on this noncontrast examination. SOFT TISSUES: Unremarkable. LIGAMENTS: Unremarkable. OTHER: There is a small amount of fluid seen in the subacromial subdeltoid bursa. IMPRESSION: 1. Full-thickness tear of the supraspinatus tendon at its insertion site onto the greater tuberosity. 2. Partial tear of the infraspinatus tendon at the musculotendinous junction. 3. Degenerative changes seen at the acromioclavicular joint. 4. Small amount of fluid seen in the subacromial subdeltoid bursa consistent with full-thickness rota tor cuff tear. DATA REPOSITORY:
== END 2024-04-09 01:18 ==
LOC: DI 00:59
PROVIDERS: PCP Family Medicine; Visit Provider Student in an Organized Health Care Education/Training Program
DX: M75.121 Complete rotator cuff tear or rupture of right shoulder, not specified as traumatic (principal)
CPT/HCPCS: 73221

== ENCOUNTER → 2024-04-14 09:19 | Outpatient (BNVA) | payer MEDICARE, SELFPAY | PROVIDERS: PCP Family Medicine; Referring Provider Family Medicine; Visit Provider Student in an Organized Health Care Education/Training Program | DX: M67.921 Unspecified disorder of synovium and tendon, right upper arm (principal); M75.101 Unspecified rotator cuff tear or rupture of right shoulder, not specified as traumatic | CPT/HCPCS: 99213 ==

== ENCOUNTER 2024-04-29 02:44 | Outpatient (CLI) | payer MEDICARE, SELFPAY ==
[2024-04-29 12:21] LABS: ESR 4 mm/hr (0-30)
[2024-04-29 12:34] LABS: C-Reactive Protein 0.85 mg/dL (<or=0.5)
== END 2024-04-29 02:45 | disposition home or self-care (01) ==
LOC: LOS 02:44
PROVIDERS: PCP Family Medicine; Visit Provider Family Medicine
DX: M35.00 Sjogren syndrome, unspecified (principal)
CPT/HCPCS: 36415; 85652; 86140

== ENCOUNTER 2024-06-17 00:42 | Outpatient (CLI) | payer MEDICARE, SELFPAY ==
--- NOTE | 2024-06-17 | DI.CT_ITS ---
Exam(s) CT ABDOMEN W EXAM: CT ABDOMEN W CLINICAL HISTORY: Z80.0 FA HX of colon cancer, (Z15.01,Z15.02,Z15.09) BRCA gene mutation. TECHNIQUE: Imaging Protocol: Axial computed tomography images with coronal and sagittal reformatted images were created and reviewed CONTRAST MATERIAL: Intravenous: Omnipaque-350 100cc Oral: Yes. Oral contrast was also administered for bowel opacification. COMPARISON: No exams were available for comparison FINDINGS: This scan is the abdomen only. Apparently for screening for pancreatic pathology. The pelvis was no t scanned. VISUALIZED LUNG BASES: No nodules nor pleural effusions evident. ABDOMEN: There is no ascites. LIVER: Liver is hypodense implying steatosis. There are peripherally located subcapsular foci of enh ancement which are evident on the arterial phase but isodense to surrounding parenchyma on venous pha se. These are probably small hemangiomas. There are no metastatic appearing lesions in the liver. GALLBLADDER/BILIARY: No obvious gallbladder pathology. CBD is not dilated. PANCREAS: No evidence of pancreatic mass nor dilatation of the pancreatic duct. SPLEEN: Spleen is not enlarged. No obvious intrasplenic lesions. Calcified granuloma noted in the s uperior aspect of the spleen. Splenic and portal veins are patent. ADRENALS: There are no significant adrenal masses. KIDNEYS:Small cortical cysts measuring less than 1 cm are noted in the left kidney. No imaging follo w-up recommended. No solid renal masses. No calculi nor hydronephrosis.. ABDOMINAL AORTA: Abdominal aorta is not enlarged. LYMPH NODES:There is no retroperitoneal nor paraaortic adenopathy. ABDOMINAL WALL: No evidence of significant anterior abdominal wall nor inguinal hernia. GI: There is a moderate size hiatal hernia noted. No other obvious findings in the stomach, duodenum and left upper quadrant small bowel loops. OSSEOUS: No significant osseous lesions. Mild anterolisthesis of L4 upon L5 noted related to bilateral facet arthropathy at this level. Mild disc space narrowing at L4-5 level no significant osseous lesions in the field of view of this study. IMPRESSION: 1. No significant focal findings in the pancreas (as per request). 2. Moderate size hiatal hernia noted. 3. Hepatic steatosis. 4. Other findings as above. RADIATION DOSE DELIVERED: 390.33mGy.cm Total DLP DATA REPOSITORY: All CT scans at this facility are submitted to the National Radiology Data Registry (NRDR) Dose Index Registry (DIR) with the [employer] (A[employer]). RADIATION OPTIMIZATION: All CT scans at this facility use at least one of these dose optimization te chniques: automated exposure control; mA and/or kV adjustment per patient size (includes targeted exa ms where dose is matched to clinical indication); or iterative reconstruction.
[2024-06-17] MEDS: Barium Sulfate 2% W/V-Berry Smoothie 450 ML BTL PO (10:07)
[2024-06-17 10:41] LABS: ALT 34 U/L (14-59); AST 21 U/L (15-37); Albumin 3.6 g/dL (3.4-5.0); Alkaline Phosphatase 73 U/L (46-116); Anion Gap 6.6 mmol/L (3-11); BUN 15 mg/dL (7-18); Bilirubin, Total 0.82 mg/dL (0.2-1.0); CO2 30.4 mmol/L (21.0-32.0); CREATININE 0.9 mg/dL (0.55-1.02); Chloride 104 mmol/L (98-107); Estimated GFR 68.35 (mL/min/1.73m2); Glucose 93 mg/dL (74-106); Potassium 3.5 mmol/L (3.5-5.1); Sodium 141 mmol/L (136-145); Total Protein 7.5 g/dL (6.4-8.2)
[2024-06-17] MEDS: Normal Saline - Diluent 50 ML VIAL IJ (11:22)
[2024-06-17] MEDS: Omnipaque 350 MG/ML 500 ML BTL-Imaging package IJ (11:23)
== END 2024-06-17 01:02 ==
LOC: DI 00:42
PROVIDERS: PCP Family Medicine; Visit Provider Internal Medicine Gastroenterology
DX: K76.0 Fatty (change of) liver, not elsewhere classified (principal)
CPT/HCPCS: 80053; 74160

== ENCOUNTER 2024-08-27 15:39 | Outpatient (REF) | payer MEDICARE, SELFPAY | END 2024-08-27 15:40 | disposition home or self-care (01) | LOC: LBN 15:39 | PROVIDERS: PCP Family Medicine; Visit Provider Obstetrics & Gynecology | DX: R30.0 Dysuria (principal); N89.8 Other specified noninflammatory disorders of vagina | CPT/HCPCS: 87086; 87480; 87510; 87660 ==

== ENCOUNTER 2024-09-14 11:22 | Outpatient (CLI) | payer MEDICARE, SELFPAY ==
--- NOTE | 2024-09-14 11:00 | DI.RAD_ITS ---
Exam(s) XR CHEST 2V PA LATERAL EXAM: XR CHEST 2V PA LATERAL CLINICAL HISTORY: cough, shortness of breath, R06.02 TECHNIQUE: 2D digital imaging was performed of the chest. Two images were obtained. PA and lateral views were obtained. COMPARISON: CR XR CHEST 2V PA LATERAL from 07/19/2022 FINDINGS: MEDIASTINUM: Normal. HEART: Normal. PULMONARY VASCULATURE: Normal. LUNGS: Clear. PLEURAL SPACE: No pleural effusion or pneumothorax. BONE:Within normal limits for the patient's age. OTHER FINDINGS:Normal. IMPRESSION: No acute pulmonary findings. DATA REPOSITORY: RADIATION DOSE DELIVERED:
== END 2024-09-14 11:42 ==
LOC: DI 11:22
PROVIDERS: PCP Family Medicine; Visit Provider Physician Assistant
DX: R06.02 Shortness of breath (principal)
CPT/HCPCS: 71046

== ENCOUNTER 2024-09-15 02:08 | Outpatient (CLI) | payer MEDICARE, SELFPAY ==
--- NOTE | 2024-09-15 07:00 | DI.US_ITS ---
Exam(s) US BREAST RT COMPLETE EXAM: US BREAST RT COMPLETE CLINICAL HISTORY: Fluid collection right breast,abnl breast exam,h/o bilat mast,r92.8 TECHNIQUE: Ultrasound right breast performed using standard protocol. COMPARISON: No exams were available for comparison FINDINGS: No solid or cystic masses, hypoechoic foci, areas of abnormal shadowing, or areas of skin thickening. The area of concern in the axillary region was evaluated sonographically and is unremarkable. The p atient is status post mastectomy and status post breast implant removal. IMPRESSION: This is an unremarkable examination. DATA REPOSITORY:
== END 2024-09-15 02:28 ==
LOC: DI 02:08
PROVIDERS: PCP Family Medicine; Visit Provider Obstetrics & Gynecology
DX: N64.59 Other signs and symptoms in breast (principal); Z90.13 Acquired absence of bilateral breasts and nipples; Z15.01 Genetic susceptibility to malignant neoplasm of breast; Z15.02 Genetic susceptibility to malignant neoplasm of ovary; Z15.09 Genetic susceptibility to other malignant neoplasm
CPT/HCPCS: 76642

== ENCOUNTER 2024-10-29 03:40 | Outpatient (CLI) | payer MEDICARE, SELFPAY ==
[2024-10-29 12:18] LABS: Abs Immature Grans 0.01 10^3/uL (0.0-0.06); Absolute Basophil Count 0.05 10^3/uL (0.0-0.2); Absolute Eosinophil Count 0.22 10^3/uL (0.0-0.7); Absolute Lymphocyte Count 1.54 10^3/uL (1.2-3.4); Absolute Monocyte Count 0.57 10^3/uL (0.1-0.8); Basophils % 0.8 %; Eosinophils % 3.6 %; HCT 40.2 % (36.0-46.0); HGB 13.4 g/dL (11.2-15.7); Immature Grans % 0.2 %; Lymphocytes % 24.9 %; MCH 31.9 pg (27.0-33.0); MCHC 33.3 % (32.0-36.0); MCV 96 fL (80-95); MPV 8.9 fL (8.0-11.0); Monocytes % 9.2 %; Neutrophils % 61.3 %; Platelet Count 252 10^3/uL (130-400); RDW-SD 45.5 fL; WBC 6.19 10^3/uL (4.4-10.8)
[2024-10-29 12:32] LABS: ALT 38 U/L (14-59); AST 28 U/L (15-37); Albumin 3.6 g/dL (3.4-5.0); Alkaline Phosphatase 60 U/L (46-116); Anion Gap 7.3 mmol/L (3-11); BUN 12 mg/dL (7-18); Bilirubin, Total 0.6 mg/dL (0.2-1.0); CO2 26.7 mmol/L (21.0-32.0); CREATININE 0.8 mg/dL (0.55-1.02); Chloride 103 mmol/L (98-107); Estimated GFR 78.24 (mL/min/1.73m2); Glucose 102 mg/dL (74-106); Potassium 3.5 mmol/L (3.5-5.1); Sodium 137 mmol/L (136-145); Total Protein 7.5 g/dL (6.4-8.2)
== END 2024-10-29 03:41 | disposition home or self-care (01) ==
PROVIDERS: PCP Family Medicine; Visit Provider Internal Medicine Gastroenterology
DX: K75.4 Autoimmune hepatitis (principal)
CPT/HCPCS: 36415; 80053; J1010; 85025

== ENCOUNTER 2025-01-05 15:00 | Outpatient (REF) | payer MEDICARE, SELFPAY ==
[2025-01-05 11:51] LABS: EPI 027-NAP1-B1 PRESUMPTIVE NEGATIVE
[2025-01-06 00:12] LABS: Campylobacter PCR Negative (Negative); Shiga Toxin PCR Negative (Negative); Shigella/Enteroinvasive Ecoli Negative (Negative)
[2025-01-06 17:12] LABS: EPI 027-NAP1-B1 PRESUMPTIVE NEGATIVE
== END 2025-01-05 15:01 | disposition home or self-care (01) ==
LOC: LBN 15:00
PROVIDERS: PCP Family Medicine; Visit Provider Family Medicine
DX: R19.7 Diarrhea, unspecified (principal)
CPT/HCPCS: 87015; 87177; 87209; 87269; 87272; 87505

== ENCOUNTER 2025-01-14 14:18 | Outpatient (CLI) | payer MEDICARE, SELFPAY ==
[2025-01-14 12:58] LABS: Abs Immature Grans 0.02 10^3/uL (0.0-0.06); HCT 40.1 % (36.0-46.0); HGB 13.3 g/dL (11.2-15.7); Immature Grans % 0.3 %; MCH 31.5 pg (27.0-33.0); MCHC 33.2 % (32.0-36.0); MCV 95 fL (80-95); MPV 8.5 fL (8.0-11.0); Platelet Count 237 10^3/uL (130-400); RBC 4.22 10^6/uL (3.93-5.22); RDW 13.0 % (11.7-14.6); RDW-SD 45.3 fL; WBC 6.23 10^3/uL (4.4-10.8)
[2025-01-14 14:15] LABS: ALT 45 U/L (14-59); AST 32 U/L (15-37); Albumin 3.4 g/dL (3.4-5.0); Alkaline Phosphatase 52 U/L (46-116); Anion Gap 6.4 mmol/L (3-11); BUN 9 mg/dL (7-18); Bilirubin, Total 0.6 mg/dL (0.2-1.0); CO2 29.6 mmol/L (21.0-32.0); Calcium 8.8 mg/dL (8.5-10.1); Chloride 105 mmol/L (98-107); Estimated GFR 91.83 (mL/min/1.73m2); Glucose 90 mg/dL (74-106); Lipase 37 U/L (<78); Magnesium 2.2 mg/dL (1.8-2.4); Potassium 3.8 mmol/L (3.5-5.1); Sodium 141 mmol/L (136-145); Total Protein 7.0 g/dL (6.4-8.2)
== END 2025-01-14 14:19 | disposition home or self-care (01) ==
LOC: LBO 14:19
PROVIDERS: PCP Family Medicine; Visit Provider Nurse Practitioner Family
DX: R10.9 Unspecified abdominal pain (principal); R19.7 Diarrhea, unspecified
CPT/HCPCS: 36415; 80053; 83690; 83735; 85025

== ENCOUNTER 2025-02-09 12:21 | Emergency (ER) | payer MEDICARE, SELFPAY ==
[2025-02-09 12:25] VITALS: BP 135/91; PULSE 88; RESP 16; TEMP 36.7; O2SAT 96
--- NOTE | 2025-02-09 13:00 | ED.GENADUL_ITS ---
Discharge Plan Disposition Patient Disposition: Home Condition: Stable Discharge Details Clinical Impression: Fracture of right wrist Primary Care Provider: Lianna aMtias ED Provider: Kade Jenkins Home Meds and New Rx's Prescriptions: Continued pregabalin [Lyrica] 75 mg capsule 75 mg PO DAILY omega-3 fatty acids 500 mg capsule 500 mg PO DAILY ondansetron 4 mg tablet,disintegrating 4 mg PO Q6H PRN (Reason: nausea and vomiting) Qty: 10 0RF acetaminophen [Tylenol] 325 MG tablet 650 mg PO 2 TABS PRN cholecalciferol (vitamin D3) 1,000 unit capsule 2,000 unit PO DAILY ascorbic acid (vitamin C) [Vitamin C] 500 mg tablet 1 g PO DAILY nystatin 100,000 unit/mL suspension 500,000 unit buccal QID Qty: 480 1RF Rx Instructions: administer 1/2 of dose in each side of the mouth, hold in mouth as long as possible, then spit acyclovir 400 mg tablet 400 mg PO 5X/DAY PRN (Reason: hs) Qty: 35 5RF levothyroxine 112 mcg capsule 112 mcg PO DAILY Qty: 90 3RF losartan 50 mg tablet 50 mg PO DAILY Qty: 30 12RF pilocarpine HCl 5 mg tablet 5 mg PO BID Qty: 60 5RF esomeprazole magnesium [Nexium] 20 mg capsule,delayed release(DR/EC) 20 mg PO DAILY Qty: 90 1RF azathioprine [Imuran] 50 mg tablet 50 mg PO DAILY Qty: 90 1RF Discharge Instructions Instructions: Wrist fracture Additional Instructions: You were seen in the emergency department for your fall with right wrist fracture, you have a transverse fracture through your radius, placed in a volar splint, you need to follow-up with orthopedics by phone for follow-up, please call them in the next week or so. Please rest, ice, compress and elevate often, please use therapeutic dosing of Tylenol (acetamenophen) & Advil (ibuprofen) in an alternating fashion as follows: Take 1000mg of Tylenol every 6 hours without missing doses- that is 4 times per day. Fci in between the Tylenol dosings, take 400-600mg of Advil also on a 6 hour schedule, that is also 4 times per day. The daily maximum dosing of Tylenol is 4000mg, and the daily maximum dosing of Advil is 2400mg. This is safe to do for weeks. Please note that some common cold medications & prescription pain medications may contain acetamenophen and you need to read OTC drug labels and factor that in to maximum daily dosings. Referrals: Lianna Matias MD [Primary Care Provider, Medicine] Discharge Data Discharge Date/Time-TO BE ENTERED AT DEPARTURE: 02/09/25 14:28 HPI General Date/Time Provider Initiated Documentation: 02/09/25 12:32 . HPI Narrative: 74 year-old female presents to ED today by POV/ambulating with a chief complaint of R wrist pain after a fall on outstretched hand, L hand dominant, with onset today. Quality described as swollen, bruised, painful to move, no radiation to skin tenting, numbness, proximal pain at the elbow, open lesions. Severity is described as moderate. Palliating factors include nothing specific. Provoking factors include movement. Patient not anticoagulated. Related Data Home Medications ?Medication ?Instructions ?Recorded ?Confirmed acetaminophen 325 mg tablet 650 mg PO 2 TABS PRN 07/2702/09/25 (Tylenol) cholecalciferol (vitamin D3) 25 2,000 unit PO DAILY 02/09/25 mcg (1,000 unit) capsule ascorbic acid (vitamin C) 500 mg 1 g PO DAILY 03/21/22 02/09/25 tablet (Vitamin C) omega-3 fatty acids 500 mg capsule 500 mg PO DAILY 06/1802/09/25 nystatin 100,000 unit/mL oral 500,000 unit (5 mL) bucc al QID 09/05/23 02/09/25 suspension #480 mL acyclovir 400 mg tablet 400 mg PO 5X/DAY PRN hs #35 tabs 10/22/23 02/09/25 levothyroxine 112 mcg capsule 112 mcg PO DAILY #90 cap s 03/04/24 02/09/25 losartan 50 mg tablet 50 mg PO DAILY #30 tabs 03/2702/09/25 pilocarpine HCl 5 mg tablet 5 mg PO BID #60 tabs 04/2802/09/25 esomeprazole magnesium 20 mg 20 mg PO DAILY #90 tab-ca ps 12/15/24 02/09/25 capsule,delayed release (Nexium) pregabalin 75 mg capsule (Lyrica) 75 mg PO DAILY 12/1802/09/25 ondansetron 4 mg disintegrating 4 mg PO Q6H PRN nausea and 01/14/25 02/09/25 tablet vomiting #10 tabs azathioprine 50 mg tablet (Imuran) 50 mg PO DAILY #90 tabs 02/08/25 02/09/25 Previous Rx's ?Medication ?Instructions ?Recorded nystatin 100,000 unit/mL oral 500,000 unit (5 mL) bucc al QID 09/05/23 suspension #480 mL acyclovir 400 mg tablet 400 mg PO 5X/DAY PRN hs #35 tabs 10/22/23 levothyroxine 112 mcg capsule 112 mcg PO DAILY #90 cap s 03/04/24 losartan 50 mg tablet 50 mg PO DAILY #30 tabs 03/27 02/17 pilocarpine HCl 5 mg tablet 5 mg PO BID #60 tabs 04/28 esomeprazole magnesium 20 mg 20 mg PO DAILY #90 tab-ca ps 12/15/24 capsule,delayed release (Nexium) ondansetron 4 mg disintegrating 4 mg PO Q6H PRN nausea and 01/14/25 tablet vomiting #10 tabs azathioprine 50 mg tablet (Imuran) 50 mg PO DAILY #90 tabs 02/08/25 Allergies Allergy/AdvReac Type Severity Reaction Status Date / Time Penicillins Allergy Severe SKIN RASH Verified 02/09/25 12:29 vancomycin AdvReac Mild FLUSHING Verified 02/09/25 12:29 gluten AdvReac Unknown ABDOMINAL Verified 02/09/25 12:29 CRAMPS General Stated Complaint: Orthopedic MARTIN: 4 Review of Systems All systems reviewed & are unremarkable except as noted in HPI and below Exam Narrative Exam Narrative: GENERAL APPEARANCE: Well-nourished, non-toxic, awake and alert, atraumatic, no acute distress. SKIN: Warm, pink, dry, intact, without rashes/lesions/ulcerations. HEAD: Normocephalic, atraumatic, normal hair distribution for gender/age. EYES: Normal conjunctiva, no exudates on lids/lashes. ENT: Nares patent, no circumoral cyanosis, no facial swelling NECK: Supple, trachea midline, painless cervical ROM. LUNGS/CHEST: Non-labored respirations, normal A/P diameter, symmetrical expansio n, no chest wall deformity HEART (CV/PV): Regular rate, no peripheral edema, no JVD. ABDOMEN: Soft, non-distended, no guarding. MSK: Spine midline without tenderness, normal curvature. R UE: swelling to R wrist, mild bruising with crepitus, sensation intact distal, R radial pulse 2+, ROM limited to pain, no pain at the proximal forearm NEURO: Mental Status AAOx4 - alert to person, place, time, events No facial droop, no forehead involvement. Motor: No focal weakness outside of her acute R wrist injury Sensory: sensation intact to light touch globally. Gait normal: patient ambulated without ataxia into ED room. PSYCH: euthymic, cooperative, pleasant, appropriate speech Course Vital Signs Vital signs: Vital Signs Temperature 36.7 C 02/09/25 12:25 Pulse 88 02/09/25 12:25 Respiratory Rate 16 02/09/25 12:25 Blood Pressure 135/91 H 02/09/25 12:25 Pulse Oximetry 96 02/09/25 12:25 Temperature 36.7 C 02/09/25 12:25 Pulse 88 02/09/25 12:25 Respiratory Rate 16 02/09/25 12:25 Blood Pressure 135/91 H 02/09/25 12:25 Pulse Oximetry 96 02/09/25 12:25 Pain Level 2 02/09/25 12:25 Procedure Orthopedic Splinting/Casting Provider that performed the procedure: Kade Jenkins Standard Time Out Performed: No Patient Consented: Verbally Side: right Upper Extremity Injury Location: wrist Upper Extremity Immobilizer: volar splint Medical Decision Making This dictation utilizes [id number] dictation software and may contain unedited grammatical errors. 74 year-old female presents to ED today by POV/ambulating with a chief complaint of R wrist pain after a fall on outstretched hand, L hand dominant, with onset today. Quality described as swollen, bruised, painful to move, no radiation to skin tenting, numbness, proximal pain at the elbow, open lesions. Severity is described as moderate. Palliating factors include nothing specific. Provoking factors include movement. Patients' medical history: [ ]. Family and social history: [ ]. Pertinent exam findings / vital signs include swelling to R wrist, mild bruising with crepitus, sensation intact distal, R radial pulse 2+, ROM limited to pain, no pain at the proximal forearm. Differential / pathologies of concern include fracture, sprain/strain, contusion. Diagnostic studies of: -XR R Wrist - shows nondisplaced fracture of R radius. Interventions of: -Discussed splint with Dr. Fiore- recommends volar- patient placed in volar, given APAP/NSAID ED Course/Assessment/Plan: 74-year-old female out of fall on outstretched hand with fracture of right wrist, discussed with orthopedics for Velcro splint versus volar splint, placed in volar splint per their consult, recommend RICE therapy and therapeutic dosing of Tylenol and ibuprofen and following up with orthopedics, strict return criteria for any signs of neurovascular compromise. Findings not consistent with unstable fracture, neurovascular compromise. Disposition of fracture of right wrist. Patient verbalized understanding of the plan and return to ED criteria and engaged in shared decision making. Medical Records Medical records reviewed: Yes I reviewed the patient's medical records. Imaging Data Radiologic Study: Attestation: I personally reviewed and interpreted this imaging study as follows: Imaging: X-Ray Radiologist's impression: EXAM: XR WRIST RT COMPL NAVICULAR CLINICAL HISTORY: R wrist injury. TECHNIQUE: 2D digital imaging was performed of the right wrist. Four views we re obtained. Scaphoid, PA, lateral and oblique views were obtained. COMPARISON: No exams were available for comparison FINDINGS: BONES: There is an acute transverse fracture through the distal metaphysis of the right radius. No bony destructive lesion is seen. JOINTS: The patient has had a prior resection of the trapezium. SOFT TISSUE: There is soft tissue swelling of the wrist. Atherosclerotic calcification is present. IMPRESSION: Transverse fracture through the distal metaphysis of the radius without significant displacement. PFSH All Active Problems (Updated 02/09/25 @ 14:09 by ARASH Izaguirre) Fracture of right wrist (Acute) Bilateral primary osteoarthritis of knee (Acute) Cerumen impaction (Acute) Rotator cuff tear, right (Acute) Prediabetes (Chronic) Tendinopathy of right biceps tendon (Acute) Arthritis of right acromioclavicular joint (Acute) Pain in right foot (Acute) Corns and callosities (Acute) Foreign body in right foot (Acute) Osteopenia (Chronic) on Reclast infusion through [facility]. Hypothyroidism (Acute 06/16/12) S/P thyroidectomy 1994; cold nodule GERD (gastroesophageal reflux disease) (Chronic) [place] [facility] [place] Celiac disease (Acute) Autoimmune hepatitis (Acute) Lifelong autoimmune hepatitis with multiple biopsies and some degree of cirrhosis. 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 GONZALEZ Family History Sister Anal cancer Other BRCA2 positive Breast cancer Colon cancer Essential hypertension Hyperlipidemia Ovarian cancer Prostate cancer Social History Smoking/Tobacco Use Status: Never Smoking risk assessment performed?: Yes Alcohol Intake: current Alcohol Intake frequency: holidays/special occasions only Alcohol type: wine and hard liquor Counseling given: No Drug use: Never Substance use type: does not use Adopted: No Caregiver/Support person: No Household members: spouse Housing: house Number of Children: 3 number of grandchildren: 5 Communication Needs: None Education Level: college Do you need help understanding health information?: Never current occupation: retired RN Pets and animals: Yes Sexually active: Yes Do you think of yourself as: straight/heterosexual Current gender identity: female What is your relationship status?: How often do you talk on the phone with friends or family?: three or more times per week How often do you get together with friends or relatives?: three or more times per week Panel score (0-1 are the most socially isolated patients): 2 What type of physical activity do you participate in: advised to exercise at least 150 min/week (moderate intensity aerobic) and advised to perform resistance training at least 2x/week Rosa Elena/Voodoo: Roman Catholic Seatbelt use: always Helmet use: Yes Drive intox or ride w/intox non emergency services ambulance driver: No Firearms in home: Yes Firearms unloaded and locked: Yes Do you feel safe at home: Yes Do you feel safe in your relationship?: Yes Victim of physical abuse: No Victim of emotional abuse: No Victim of sexual abuse: No Would you like helpful sources: No Female Reproductive History Menstrual Menopause type: natural History History 1 Para 1 Hx # Term Pregnancies Multiple births Hx # Pregnancies Ectopic pregnancies AB induced Hx Number of Living Children AB spontaneous
== END 2025-02-09 14:28 | disposition home or self-care (01) ==
PROVIDERS: Emergency Provider Physician Assistant; PCP Family Medicine
DX: S52.324A Nondisplaced transverse fracture of shaft of right radius, initial encounter for closed fracture (principal); W19.XXXA Unspecified fall, initial encounter
CPT/HCPCS: 29125; 99283; 73110

== ENCOUNTER 2025-02-19 11:37 | Outpatient (CLI) | payer MEDICARE, SELFPAY ==
--- NOTE | 2025-02-19 10:45 | DI.RAD_ITS ---
Exam(s) XR WRIST RT LIMITED EXAM: XR WRIST RT LIMITED CLINICAL HISTORY: F/U FRACTURE. TECHNIQUE: 2D digital imaging was performed. Three views. COMPARISON: CR XR WRIST RT COMPL NAVICULAR from 02/09/2025 FINDINGS: BONES: A ventral splint is in place. There is stable alignment of the distal radial fracture. No acute fracture is present. No bony destructive lesion is seen. Prior resection of the trapezium is again noted. JOINTS: Degenerative changes at the base of the thumb. Dorsal tilt of the lunate is unchanged. SOFT TISSUE: partially obscured by splint. Posterior soft tissue swelling. IMPRESSION: Stable alignment of distal radial fracture. DATA REPOSITORY: RADIATION DOSE DELIVERED:
--- NOTE | 2025-02-19 11:00 | DI.RAD_ITS ---
Exam(s) XR WRIST RT LIMITED EXAM: XR WRIST RT LIMITED INDICATION: fx R wrist after splint exchange. COMPARISON: CR XR WRIST RT COMPL NAVICULAR from 02/09/2025 CR XR WRIST RT LIMITED from 02/19/2025 TECHNIQUE: 2D digital imaging was performed. Two views. FINDINGS: A new splint has been placed. There has been no change in the alignment of the distal radial fracture. DATA REPOSITORY: RADIATION DOSE DELIVERED:
== END 2025-02-19 11:38 | disposition home or self-care (01) ==
LOC: DIORS 11:37
PROVIDERS: PCP Family Medicine; Referring Provider Family Medicine; Visit Provider Physician Assistant
DX: S62.101D Fracture of unspecified carpal bone, right wrist, subsequent encounter for fracture with routine healing (principal); X58.XXXD Exposure to other specified factors, subsequent encounter
CPT/HCPCS: 99213; 73100

== ENCOUNTER 2025-02-26 11:11 | Outpatient (CLI) | payer MEDICARE, SELFPAY ==
--- NOTE | 2025-02-26 11:19 | DI.RAD_ITS ---
Exam(s) XR WRIST RT LIMITED EXAM: XR WRIST RT LIMITED CLINICAL HISTORY: F/U R WRIST FX. TECHNIQUE: 2D digital imaging was performed. COMPARISON: CR XR WRIST RT LIMITED from 02/19/2025 FINDINGS: Two views Again noted is the previously described transverse fracture in the distal radius with mild impaction and no significant angulation. There is no fracture of the distal ulna and no significant ulnar variance. Scaphoid and scapholunate distance are normal. There is absence of the trapezium bone in the lateral aspect of the distal carpal row. Some degenerative changes are noted at the base of the thumb metacarpal. No osseous lesions nor radiopaque foreign bodies noted. IMPRESSION: Fracture site in the distal radius appears unchanged from 02/19/2025. DATA REPOSITORY: RADIATION DOSE DELIVERED:
== END 2025-02-26 11:12 | disposition home or self-care (01) ==
LOC: DIORS 11:11
PROVIDERS: PCP Family Medicine; Referring Provider Family Medicine; Visit Provider Physician Assistant
DX: S62.101D Fracture of unspecified carpal bone, right wrist, subsequent encounter for fracture with routine healing (principal); X58.XXXD Exposure to other specified factors, subsequent encounter
CPT/HCPCS: 99213; 73100

== ENCOUNTER 2025-03-26 11:34 | Outpatient (CLI) | payer MEDICARE, SELFPAY ==
--- NOTE | 2025-03-26 11:25 | DI.RAD_ITS ---
Exam(s) XR WRIST RT LIMITED EXAM: XR WRIST RT LIMITED CLINICAL HISTORY: F/U R WRIST FX. TECHNIQUE: 2D digital imaging was performed of the right wrist. Two views were obtained. And lateral views were obtained. COMPARISON: CR XR WRIST RT LIMITED from 02/19/2025 CR XR WRIST RT LIMITED from 02/26/2025 FINDINGS: BONES: There does not appear to be any significant change in the alignment of the mildly impacted and displaced fracture involving the distal radial metaphysis. There is no new fracture. No bony destructive lesion is seen. JOINTS: The carpal bones are normally aligned. There has been a prior resection of the trapezium. SOFT TISSUE: Normal. IMPRESSION: Stable alignment of the distal right radial fracture. DATA REPOSITORY: RADIATION DOSE DELIVERED:
== END 2025-03-26 11:35 | disposition home or self-care (01) ==
LOC: DIORS 11:34
PROVIDERS: PCP Family Medicine; Referring Provider Family Medicine; Visit Provider Physician Assistant
DX: S52.501D Unspecified fracture of the lower end of right radius, subsequent encounter for closed fracture with routine healing (principal); X58.XXXD Exposure to other specified factors, subsequent encounter
CPT/HCPCS: 99213; 73100

== ENCOUNTER → 2025-04-15 13:45 | Outpatient (BNVA) | payer MEDICARE, SELFPAY | PROVIDERS: PCP Family Medicine; Referring Provider Family Medicine; Visit Provider Student in an Organized Health Care Education/Training Program | DX: S62.101D Fracture of unspecified carpal bone, right wrist, subsequent encounter for fracture with routine healing (principal); X58.XXXD Exposure to other specified factors, subsequent encounter | CPT/HCPCS: 99213 ==

== ENCOUNTER 2025-05-04 01:35 | Outpatient (CLI) | payer MEDICARE, SELFPAY ==
[2025-05-04 15:07] LABS: TSH (W/Ref FT4) 14.50 uIU/mL (0.55-4.78)
== END 2025-05-04 01:36 | disposition home or self-care (01) ==
LOC: LOS 01:37
PROVIDERS: PCP Family Medicine; Visit Provider Family Medicine
DX: E03.9 Hypothyroidism, unspecified (principal)
CPT/HCPCS: 36415; 84439; 84443

== ENCOUNTER 2025-05-17 12:10 | Outpatient (CLI) | payer MEDICARE, SELFPAY ==
--- NOTE | 2025-05-17 11:30 | DI.RAD_ITS ---
Exam(s) XR WRIST RT LIMITED EXAM: XR WRIST RT LIMITED CLINICAL HISTORY: F/U R WRIST. TECHNIQUE: 2D digital imaging was performed of the right wrist. Two views were obtained. PA and lateral views were obtained. COMPARISON: CR XR WRIST RT COMPL NAVICULAR from 02/09/2025 CR XR WRIST RT LIMITED from 03/26/2025 FINDINGS: BONES: There has been no change in alignment of the distal radial fracture. The fracture line is less well visualized since the prior examination suggesting some interval healing. There is no new fracture. There is again seen prior resection of the trapezium. JOINTS: The carpal bones are normally aligned. There is again seen dorsal tilt of the lunate. SOFT TISSUE: Vascular calcifications are present. IMPRESSION: Stable alignment of the distal right radial fracture. DATA REPOSITORY: RADIATION DOSE DELIVERED:
== END 2025-05-17 12:11 | disposition home or self-care (01) ==
LOC: DIORS 12:10
PROVIDERS: PCP Family Medicine; Referring Provider Family Medicine; Visit Provider Student in an Organized Health Care Education/Training Program
DX: S62.101D Fracture of unspecified carpal bone, right wrist, subsequent encounter for fracture with routine healing (principal); S63.591D Other specified sprain of right wrist, subsequent encounter; X58.XXXD Exposure to other specified factors, subsequent encounter
CPT/HCPCS: 20605; J1010; 73100